=== PATIENT | female | born 1945 | race African-American/Black ===

== ENCOUNTER → 2019-10-28 | Outpatient (CLI) | payer BC, MEDICARE ==
[2019-08-14 08:15] VITALS: BP 138/67
[~2019-10-28] MED LIST: HYDR-3164 PO
--- NOTE | 2019-10-28 13:09 | KCIC ---
MR of the right knee HISTORY: Right medial knee pain and swelling. [place] a pop. TECHNIQUE: Routine multiplanar sequences are obtained. FINDINGS: Degenerative tear at the posterior root of the medial meniscus, with medial subluxation of the meniscus. No evidence of a lateral meniscal tear. Anterior and posterior cruciate ligaments are intact. Medial collateral ligament is intact. Iliotibial band unremarkable. Fibular collateral ligament, biceps femoris tendon and popliteus tendon are intact. The extensor mechanism is intact. Trace joint fluid. Mild disorganized fluid in the posteromedial knee soft tissues, likely a ruptured Swift's cyst. Severe chondral thinning of the weightbearing medial joint compartment. Lateral joint compartment and patellofemoral joint compartment articular cartilage are intact. No acute fracture. No aggressive bone destruction. IMPRESSION: 1. Medial meniscal tear. 2. Medial compartment chondromalacia. 3. Small ruptured Swift's cyst. Electronically signed by: Sarthak Thakur MD (10/28/2019 1:06 PM) [facility]-KCIC2
== END | disposition home or self-care (01) ==
LOC: KCIC MRI 11:35
PROVIDERS: ATTEND Orthopaedic Surgery
DX: S83.241A Other tear of medial meniscus, current injury, right knee, initial encounter (principal); M94.261 Chondromalacia, right knee; M71.21 Synovial cyst of popliteal space [Baker], right knee; X58.XXXA Exposure to other specified factors, initial encounter; Y93.89 Activity, other specified; Y92.89 Other specified places as the place of occurrence of the external cause; Y99.8 Other external cause status
CPT/HCPCS: 73721

== ENCOUNTER 2021-04-15 09:58 | Inpatient (IN) | payer BC ==
[~2021-04-15] VITALS: Ht 160 cm; Wt 80.6 kg
[2021-04-15] MEDS ORDERED: DEXAMETHASONE SOD PHOS 20 MG/5 ML VIAL. IVP ONE (11:00)
[2021-04-15] MEDS ORDERED: ONDANSETRON PF 4 MG/2 ML VIAL. IVP ONE (11:30)
[2021-04-15] MEDS ORDERED: IV NORMAL SALINE 1000ML BAG 1,000 ML IV ONE (11:30)
--- NOTE | 2021-04-15 11:30 | PHYS DOC ---
Past Medical History Past Medical History: Cancer, Hypertension Additional Past Medical Histor: emphysema, palpitations Past Surgical History: Hysterectomy Additional Past Surgical Histo: lung biopsy Smoking Status: Former Smoker Alcohol Use: None Drug Use: None General Adult EDM: Chief Complaint: SHORTNESS OF BREATH HPI: HPI: Patient is a 75 year old female who presents with her daughter came down with Covid and was tested on Sunday and came back positive so she got tested on Sunday and was positive. Patient states on Sunday she been having nausea, salty taste in her mouth, shortness of air, cough, diarrhea and lack of appetite in general. She states that her temperature has been getting up to one hundred and one. She states she did not take any of her medications today. She states that her primary care doctor gave her Tessalon Perles, promethazine codeine cough medication, azithromycin. She states it makes her gag. She states she is unable to eat because she is very nauseated. Review of Systems: Review of Systems: Constitutional: + fever or chills. [] Eyes: Denies change in visual acuity. [] HENT: Denies nasal congestion or sore throat. [] Respiratory: + cough or +shortness of breath. [] Cardiovascular: Denies chest pain or edema. [] GI: Denies abdominal pain, +nausea, denies vomiting, bloody stools or +diarrhea. [] : Denies dysuria. [] Musculoskeletal: Denies back pain or joint pain. + Generalized body ache [] Integument: Denies rash. [] Neurologic: Denies headache, focal weakness or sensory changes. [] Endocrine: Denies polyuria or polydipsia. [] Lymphatic: Denies swollen glands. [] Psychiatric: Denies depression or anxiety. [] Heart Score: C/O Chest Pain: No HEART Score for Chest Pain: HEART Score for Chest Pain Response (Comments) Value History Slighlty/Non-Suspicious 0 ECG Nonspecific Repolarizatio 1 Age > 65 2 Risk Factors 1 or 2 Risk Factors 1 Troponin < Normal Limit 0 Total 4 Risk Factors: Risk Factors: DM, Current or recent (<one month) smoker, HTN, HLP, family history of CAD, obesity. Risk Scores: Score 0 - 3: 2.5% MACE over next 6 weeks - Discharge Home Score 4 - 6: 20.3% MACE over next 6 weeks - Admit for Clinical Observation Score 7 - 10: 72.7% MACE over next 6 weeks - Early Invasive Strategies Current Medications: Current Medications Medications (Trade) Dose Ordered Sig/Jimenez Start Time Stop Time Status Last Admin Dose Admin Dexamethasone Sodium Phosphate (Decadron) 20 mg 1X ONCE 04/15/21 11:00 04/15/21 11:01 DC Allergies: Allergies: Allergies Coded Allergies Type Severity Reaction Last Updated Verified No Known Drug Allergies 02/09/15 No Physical Exam: PE: Constitutional: Well developed, well nourished, no acute distress, non-toxic appearance. [] HENT: Normocephalic, atraumatic, bilateral external ears normal, oropharynx moist, no oral exudates, nose normal. [] Eyes: PERRLA, EOMI, conjunctiva normal, no discharge. [] Neck: Normal range of motion, no tenderness, supple, no stridor. [] Cardiovascular:Heart rate tachycardia regular rhythm, no murmur [] Lungs & Thorax: Bilateral upper breath sounds clear and lower diminished to auscultation [] Abdomen: Bowel sounds normal, soft, no tenderness, no masses, no pulsatile masses. [] Skin: Warm, dry, no erythema, no rash. [] Back: No tenderness, no CVA tenderness. [] Extremities: No tenderness, no cyanosis, no clubbing, ROM intact, no edema. [] Neurologic: Alert and oriented X 3, normal motor function, normal sensory function, no focal deficits noted. [] Psychologic: Affect normal, judgement normal, mood normal. [] EKG: EK and read by Dr. Austin as sinus tachycardia no STEMI Radiology/Procedures: Radiology/Procedures: [] Impression: [facility] [address] [place], [place] [id number] IMAGING REPORT Signed PATIENT: CURT MOHAN ACCOUNT: [id number] : 1945 LOCATION: ER AGE: 75 SEX: F EXAM STATUS: REG ER ORD. PHYSICIAN: FABIANO HORNER APRN REASON: SOA, COVID + PROCEDURE: PORTABLE CHEST 1V EXAM: CHEST ONE VIEW. HISTORY: Shortness of breath. COMPARISON: 02/09/2015. FINDINGS: A frontal view of the chest is obtained. There are interstitial opacities with a basilar predominance. There is a lung suture line in the right apex. Aracelis project over the right hilum. There is no pneumothorax or pleural effusion. The heart is not enlarged. There are atherosclerotic calcifications of the aorta. IMPRESSION: 1. Basilar predominant interstitial infiltrates are consistent with mild pulmonary edema or atypical pneumonia. Electronically signed by: Zhanna Sanford MD (04/15/2021 11:52 AM) [id number] DICTATED and SIGNED BY: AYAH SANFORD MD DATE: 04/15/21 [id number] 0 Course & Med Decision Making: Course & Med Decision Making Pertinent Labs and Imaging studies reviewed. (See chart for details) See HPI. Alert and oriented x4. Ambulatory with steady gait. Speaks in full clear sentences. On her normal 2 L of oxygen that she wears all day every day she is 92%. Lungs are clear in upper lobes and diminished in lower lobes. No accessory muscle use. No respiratory distress. Skin pink warm and dry. She has pneumonia with COVID-19. Not hypoxic at this time. She does have a high white count with a shift. I did start her on antibiotic here in the ER. I spoke to Dr. Aguirre for admission and he said to order Remdesivir. I called pharmacy and they are ordering it. I did not consult Dr. Agrawal at this time because he has stated that he only wants to be consulted for patients that are hypoxic. [] Dragon Disclaimer: Dragsudha Disclaimer: This electronic medical record was generated, in whole or in part, using a voice recognition dictation system. COVID-19 Patient Risks: Age 65 or older: Yes Sign of co-morbidity: Yes Exp to person + for COVID: Yes Exp to PUI: Yes Travel from affected area: No Lower respiratory symptoms: Yes Fever: Yes Other: Yes (salty taste, nausea) PPE Use: Full PPE with N95 mask or PAPR: Yes Departure Departure Impression: Primary Impression: Pneumonia due to COVID-19 virus Disposition: ADMITTED INPATIENT Admitting Physician: Anna Aguirre Condition: STABLE Referrals: ANNA AGUIRRE MD (PCP) FABIANO HORNER COMBAT CONTROL MANAGER Apr 15, 2021 11:30
[2021-04-15 11:44] LABS: BASO % 0 % (0-3); EOS % 0 % (0-3); HEMATOCRIT 39.4 % (36.0-47.0); HEMOGLOBIN 13.1 g/dL (12.0-15.5); LYMPH # 0.8 x10^3/uL (1.0-4.8); LYMPH % 5 % (24-48); MEAN CORPUSCULAR HEMOGLOBIN 28 pg (25-35); MEAN CORPUSCULAR HGB CONC 33 g/dL (31-37); MEAN CORPUSCULAR VOLUME 85 fL (79-100); MONO # 1.2 x10^3/uL (0.0-1.1); MONO % 8 % (0-9); NEUT # 13.4 x10^3/uL (1.8-7.7); NEUT % 87 % (31-73); PLATELET COUNT 199 x10^3/uL (140-400); RED BLOOD COUNT 4.65 x10^6/uL (3.50-5.40); RED CELL DISTRIBUTION WIDTH 17.7 % (11.5-14.5); WHITE BLOOD COUNT 15.5 x10^3/uL (4.0-11.0)
--- NOTE | 2021-04-15 11:54 | RAD ---
EXAM: CHEST ONE VIEW. HISTORY: Shortness of breath. COMPARISON: 02/09/2015. FINDINGS: A frontal view of the chest is obtained. There are interstitial opacities with a basilar predominance. There is a lung suture line in the righ t apex. Aracelis project over the right hilum. There is no pneumothorax or pleural effusion. The heart is not enlarged. There are atherosclerotic calcifications of the aorta. IMPRESSION: 1. Basilar predominant interstitial infiltrates are consistent with mild pulmonary edema or atypical pneumonia. Electronically signed by: Zhanna Sanford MD (04/15/2021 11:52 AM) [id number]
[2021-04-15] MEDS ORDERED: AZITHRMYCN 500MG IVPB FOR OMNI 250 ML IV ONE (12:00)
[2021-04-15] MEDS ORDERED: ACETAMINOPHEN 500 MG TABLET PO ONE (12:00)
[2021-04-15 12:30] LABS: CREATININE 1.4 mg/dL (0.6-1.0); GFR 44.5; POTASSIUM 4.3 mmol/L (3.5-5.1)
[2021-04-15 12:38] LABS: ALBUMIN 3.2 g/dL (3.4-5.0); ALBUMIN/GLOBULIN RATIO 0.5 (1.0-1.7); TOTAL BILIRUBIN 2.2 mg/dL (0.2-1.0); TOTAL PROTEIN 9.1 g/dL (6.4-8.2)
[2021-04-15 12:59] LABS: % ATYL 1 % (0-0); % BANDS 2 % (0-9); % LYMPHS 5 % (24-48)
[2021-04-15 13:00] LABS: % MONOS 6 % (0-10); % SEGS 86 % (35-66); ANISOCYTOSIS SLIGHT; PLT ESTIMATE ADEQUATE (ADEQUATE)
[2021-04-15 14:25] LABS: BASE EXCESS COOX -3 mmol/L (-3-3); HCO3 COOX 21 mmol/L (21-28); METHEMOGLOBIN 0.4 % (0.0-1.9); OXYHEMOGLOBIN 92.5 %; PCO2 COOX 31 mmHg (35-46); PO2 COOX 71 mmHg (65-108); SAT O2 COOX 93 % (92-99)
[2021-04-15] MEDS ORDERED: ACETAMINOPHEN 325 MG TABLET. PO PRN (14:45)
[2021-04-15] MEDS ORDERED: IV NORMAL SALINE 500ML BAG 500 ML IV ONE (15:00)
[2021-04-15] MEDS ORDERED: REMDESIVIR LOAD in IV NORMAL SALINE 250ML TV IV ONE (16:00)
--- NOTE | 2021-04-15 17:45 | EKG ---
[facility] [address] [place] [address] Test Date: 2021-04-15 Test Time: 10:59:46 Pat Name: CURT MOHAN Department: Room: Gender: F Emergency Vehicle Dispatcher: : 1945 Requested By: FABIANO HORNER Order Number: [id number] Reading MD: Measurements Intervals [place] Rate: 103 P: 76 NC: 148 QRS: 35 QRSD: 80 T: 59 QT: 330 QTc: 434 Interpretive Statements SINUS TACHYCARDIA NO SPECIFIC ECG ABNORMALITIES RI6.02 No previous ECG available for comparison
[2021-04-15 19:00] VITALS: BP 129/61
[2021-04-15] MEDS ORDERED: LEVO112T49 PO (21:19)
[2021-04-15] MEDS ORDERED: D-ME473S14 PO (21:19)
[2021-04-15] MEDS ORDERED: FLUT16SP NS (21:19)
[2021-04-15] MEDS ORDERED: HYDR-2763 PO (21:19)
[2021-04-15] MEDS ORDERED: BENZ-8 PO (21:19)
[2021-04-15] MEDS ORDERED: ALBU2.5V8 IH (21:19)
[2021-04-15] MEDS ORDERED: METO-239 PO (21:19)
[2021-04-15] MEDS ORDERED: UMEC1DIS INH (21:19)
[2021-04-15] MEDS ORDERED: ALBU2.5V8 INH (21:19)
[2021-04-15] MEDS ORDERED: AMLO2.5T5 PO (21:19)
[2021-04-15] MEDS ORDERED: ATOR10TA60 PO (21:19)
[2021-04-15] MEDS ORDERED: ALBUTEROL SULFATE 2.5 MG/3 ML NEBU. INH PRN (21:30)
[2021-04-15] MEDS ORDERED: ALBUTEROL SULFATE 8GM INHALER. INH PRN (21:30)
[2021-04-15] MEDS ORDERED: HYDROcodone/APAP 7.5/325MG 1 TAB TABLET PO PRN (21:30)
[2021-04-15] MEDS: ATORVASTATIN CALCIUM 10 MG TABLET. PO SCH (22:21)
[2021-04-15] MEDS: guaiFENesin DM 200MG/20MG 10 ML SYRUP PO PRN (22:31)
[2021-04-15] MEDS ORDERED: ASPI81TA59 PO (22:37)
[2021-04-15 23:06] VITALS: BP 115/62
[2021-04-16 03:11] VITALS: BP 108/60
[2021-04-16] MEDS: LEVOTHYROXINE 112 MCG TABLET PO SCH (05:53)
[2021-04-16] MEDS: guaiFENesin DM 200MG/20MG 10 ML SYRUP PO PRN (05:58)
[2021-04-16 06:32] LABS: ALBUMIN 2.3 g/dL (3.4-5.0); ALBUMIN/GLOBULIN RATIO 0.4 (1.0-1.7); BASO % 0 % (0-3); CALCIUM 9.5 mg/dL (8.5-10.1); CREATININE 1.2 mg/dL (0.6-1.0); EOS % 0 % (0-3); GFR 53.1; HEMATOCRIT 33.3 % (36.0-47.0); HEMOGLOBIN 10.8 g/dL (12.0-15.5); LYMPH # 0.5 x10^3/uL (1.0-4.8); LYMPH % 4 % (24-48); MEAN CORPUSCULAR HEMOGLOBIN 28 pg (25-35); MEAN CORPUSCULAR HGB CONC 33 g/dL (31-37); MEAN CORPUSCULAR VOLUME 86 fL (79-100); MONO # 0.8 x10^3/uL (0.0-1.1); MONO % 6 % (0-9); NEUT # 11.8 x10^3/uL (1.8-7.7); NEUT % 90 % (31-73); PLATELET COUNT 187 x10^3/uL (140-400); POTASSIUM 4.5 mmol/L (3.5-5.1); RED BLOOD COUNT 3.89 x10^6/uL (3.50-5.40); RED CELL DISTRIBUTION WIDTH 17.6 % (11.5-14.5); TOTAL PROTEIN 7.5 g/dL (6.4-8.2); WHITE BLOOD COUNT 13.1 x10^3/uL (4.0-11.0)
[2021-04-16 07:00] VITALS: BP 104/61
--- NOTE | 2021-04-16 09:34 | PDOC ---
Provider Note Date of Service: DATE: 04/16/21 TIME: 09:30 Provider Note [id number] Justifications for Admission Other Justification ANNA AGUIRRE MD Apr 16, 2021 09:34
[2021-04-16] MEDS: FLUTICASONE 50MCG/NASAL SPRAY 16GM BOTTLE. NS SCH (09:38)
[2021-04-16] MEDS: FLUTICASONE/VILANTEROL 100/25 INHALER. INH SCH (09:38)
[2021-04-16] MEDS: ALBUTEROL SULFATE 8GM INHALER. INH PRN (09:39)
[2021-04-16] MEDS: DEXAMETHASONE SOD PHOS 4 MG/ML VIAL IVP SCH (09:40)
[2021-04-16] MEDS: ASPIRIN CHEWABLE 81 MG TABLET. PO SCH (09:41)
[2021-04-16] MEDS: METOPROLOL SUCC 24HR ER 50 MG TAB.ER.24H. PO SCH (09:41)
[2021-04-16] MEDS: ENOXAPARIN 40 MG/0.4 ML SYRINGE. SQ SCH (09:51)
[2021-04-16 11:00] VITALS: BP 110/62
--- NOTE | 2021-04-16 11:22 | HP ---
ADMIT DATE: 04/15/2021 CHIEF COMPLAINT: COVID. HISTORY OF PRESENT ILLNESS: A 75-year-old black female with known oxygen-dependent COPD and a prior history of lung cancer that appears to be in remission, was diagnosed with COVID per positive test about 1 week ago. She was exposed by her daughter who is ill 3 or 4 days prior to that and has had symptoms for a total of about 10 days. She received COVID vaccine 2-3 months ago by her history. She is having some increasing shortness of breath, cough or weakness in the last few days and admitted through the ER. She has had scant sputum production, generalized weakness, loss of taste and no other specific symptoms. PAST MEDICAL HISTORY: MEDICATIONS: Multiple meds listed per the chart. ALLERGIES: NALBUPHINE. She is on oxygen at home at 2 liters continuously and she is along the doctors at [facility]. Her cancer of the lung appears to be in remission to her knowledge. Other vaccines as far as she knows are up to date. SOCIAL HISTORY: Nonsmoker for many years. She is . She is retired, nondrinker. FAMILY HISTORY: Unremarkable. REVIEW OF SYSTEMS: No other specific complaints. OBJECTIVE: ENT: All within normal limits. NECK: No masses, nodes or bruits. LUNGS: Decreased breath sounds, scattered rhonchi. No wheezing or tachypnea at rest. CARDIOVASCULAR: Regular rate. No tachycardia or murmur. ABDOMEN: Benign, soft, nontender. No masses. EXTREMITIES: Good pedal and radial pulses. No clubbing, no edema. NEUROLOGIC: Physiologic and nonfocal. Gait was not tested. Mental status is intact. GENITOURINARY AND RECTAL: Deferred. LABORATORY DATA: Generally unremarkable. Bilirubin on admission was 2.2 and now this morning was 1.0. Blood gases showed no respiratory acidosis. ASSESSMENT: Interstitial pneumonia secondary to COVID-19. She has underlying oxygen-dependent chronic obstructive pulmonary disease and previous history of lung cancer and contagious illnesses, but her recent vaccination may help modify her illness. PLAN: IV Decadron and remdesivir and subQ Lovenox prophylaxis. Encourage movement about the room to prevent DVT and weakness. Good fluid hydration. Pulmonary consultation and will not be using IL-6 inhibitor unless her symptoms notably worsen per current protocols. YEN/[facility] [place] DR: YEN/sharan TID: [id number]
[2021-04-16 15:00] VITALS: BP 115/67
[2021-04-16] MEDS: REMDESIVIR 100mg in NORMAL SALINE 250ML X 4 DAYS IV SCH (15:53)
[2021-04-16] MEDS: HYDROcodone/APAP 5/325MG 1 TAB TABLET PO PRN (16:04)
[2021-04-16 19:00] VITALS: BP 106/60
[2021-04-16] MEDS: ATORVASTATIN CALCIUM 10 MG TABLET. PO SCH (21:07)
[2021-04-16 23:04] VITALS: BP 107/59
[2021-04-17 03:21] VITALS: BP 102/61
[2021-04-17] MEDS: guaiFENesin DM 200MG/20MG 10 ML SYRUP PO PRN ×2 (05:07→18:14)
[2021-04-17] MEDS: HYDROcodone/APAP 5/325MG 1 TAB TABLET PO PRN ×2 (05:07→21:11)
[2021-04-17] MEDS: LEVOTHYROXINE 112 MCG TABLET PO SCH (05:47)
[2021-04-17 06:59] VITALS: BP 109/59
--- NOTE | 2021-04-17 09:57 | PDOC ---
Provider Note Date of Service: DATE: 04/17/21 TIME: 09:55 Provider Note bp low so will hold amlo- no temp, O2 status same, 2 L- will continue dexa/remdesivir, pulm consult pending, ? use of monoclonal AB here Justifications for Admission Other Justification ANNA AGUIRRE MD Apr 17, 2021 09:56
[2021-04-17 11:00] VITALS: BP 101/55
[2021-04-17] MEDS: FLUTICASONE/VILANTEROL 100/25 INHALER. INH SCH (11:44)
[2021-04-17] MEDS: ALBUTEROL SULFATE 8GM INHALER. INH PRN (11:44)
[2021-04-17] MEDS: ENOXAPARIN 40 MG/0.4 ML SYRINGE. SQ SCH (11:44)
[2021-04-17] MEDS: FLUTICASONE 50MCG/NASAL SPRAY 16GM BOTTLE. NS SCH (11:44)
[2021-04-17] MEDS: METOPROLOL SUCC 24HR ER 50 MG TAB.ER.24H. PO SCH (11:45)
[2021-04-17] MEDS: ASPIRIN CHEWABLE 81 MG TABLET. PO SCH (11:45)
[2021-04-17] MEDS: DEXAMETHASONE SOD PHOS 4 MG/ML VIAL IVP SCH (11:46)
[2021-04-17] MEDS: FAMOTIDINE 20 MG TABLET. PO SCH (11:50)
[2021-04-17 15:00] VITALS: BP 138/62
[2021-04-17] MEDS: REMDESIVIR 100mg in NORMAL SALINE 250ML X 4 DAYS IV SCH (15:21)
[2021-04-17 19:00] VITALS: BP 129/77
[2021-04-17] MEDS: BENZONATATE 100 MG CAPSULE. PO PRN (21:07)
[2021-04-17] MEDS: ATORVASTATIN CALCIUM 10 MG TABLET. PO SCH (21:07)
[2021-04-17 23:00] VITALS: BP 110/70
[2021-04-18 03:00] VITALS: BP 116/67
[2021-04-18] MEDS: LEVOTHYROXINE 112 MCG TABLET PO SCH (06:04)
[2021-04-18 07:00] VITALS: BP 129/70
--- NOTE | 2021-04-18 08:22 | PDOC ---
Provider Note Date of Service: DATE: 04/18/21 TIME: 08:21 Provider Note vss, O2 same- no temp- no dyspnea, emergency services professional cough, sputum cult pending- day 4 remdesivir, cont rest same, ? monoclonal AB used here Justifications for Admission Other Justification ANNA AGUIRRE MD Apr 18, 2021 08:22
--- NOTE | 2021-04-18 09:07 | CONS ---
DATE OF CONSULTATION: 04/18/2021 ATTENDING PHYSICIAN: Dr. Jaylon Wilson. REASON FOR CONSULTATION: Respiratory failure, COVID-19 pneumonia. HISTORY OF PRESENT ILLNESS: The patient is a 75-year-old female who has oxygen dependent COPD and prior history of lung cancer, which appears to be in remission. She was diagnosed with COVID-19 a week ago. The patient did receive COVID vaccine a few months ago. She started to have some shortness of breath and a cough. She was brought into the Emergency Room. Her chest x-ray was reviewed and it shows prominent interstitial infiltrates consistent with viral pneumonia. She is currently requiring oxygen at 4 liters. Saturations are 94%. I have been asked to see her for further evaluation. PAST MEDICAL HISTORY: Significant for history of lung cancer, appears to be in remission. Details not available at present. Recent COVID positive. No significant tobacco history. PAST SURGICAL HISTORY: No recent surgeries. FAMILY HISTORY: Unremarkable. SOCIAL HISTORY: Smoked for only 5-10 years before quitting some 30 years ago. REVIEW OF SYSTEMS: A 12-point system obtained. Pertinent positives discussed in my history of present illness, otherwise noncontributory. All systems that were negative were reviewed as well. PHYSICAL EXAMINATION: VITAL SIGNS: Vital signs were reviewed. Blood pressure is stable, pulse ox 94% on 4 liters. She had a T-max of 99.3. Visual exam done, no paradoxical breathing. No skin rash. EXTREMITIES: No leg edema. LABORATORY DATA: Labs were reviewed. White cell count 13.1, hemoglobin 10.8, platelets are 187. ABGs reviewed. PO2 of 71 on 2 liters. IMPRESSION: 1. Acute on chronic hypoxic respiratory failure secondary to COVID-19 viral pneumonia. 2. Underlying chronic obstructive pulmonary disease with home oxygen dependence. 3. History of lung cancer, status post treatment, now in remission. I will obtain old records for the details. RECOMMENDATIONS: 1. Continue present oxygen, keep saturations 92 and above. 2. Continue with remdesivir. 3. Dexamethasone per protocol. 4. Empiric antibiotic with Levaquin. 5. Bronchodilators as ordered. 6. We will follow along with you. Overall, respiratory status is stable. We will be available for any further recommendations. We will follow as needed. [facility] DR: Chela TID: [id number]
--- NOTE | 2021-04-18 10:46 | NUR ---
SW following. Discussed with RN, pt from home with family, 4L (uses 2L at home), cardiac diet, COVID-19 positive. Pt uses a CPAP at night. PT/OT ordered. RN advised no SW needs at this time. SW will continue to follow.
[2021-04-18 11:00] VITALS: BP 130/82
[2021-04-18] MEDS: ENOXAPARIN 40 MG/0.4 ML SYRINGE. SQ SCH (12:41)
[2021-04-18] MEDS: METOPROLOL SUCC 24HR ER 50 MG TAB.ER.24H. PO SCH (12:42)
[2021-04-18] MEDS: ASPIRIN CHEWABLE 81 MG TABLET. PO SCH (12:43)
[2021-04-18] MEDS: FAMOTIDINE 20 MG TABLET. PO SCH (12:43)
[2021-04-18] MEDS: FLUTICASONE/VILANTEROL 100/25 INHALER. INH SCH (12:44)
[2021-04-18] MEDS: FLUTICASONE 50MCG/NASAL SPRAY 16GM BOTTLE. NS SCH (12:44)
[2021-04-18] MEDS: ALBUTEROL SULFATE 8GM INHALER. INH PRN (12:44)
[2021-04-18] MEDS: DEXAMETHASONE SOD PHOS 4 MG/ML VIAL IVP SCH (12:44)
[2021-04-18] MEDS: IPRATROPIUM/ALBUTEROL 20/100mcg/INH INHALER. INH SCH ×4 (12:45→21:59)
[2021-04-18] MEDS: guaiFENesin DM 200MG/20MG 10 ML SYRUP PO PRN ×2 (13:54→21:59)
[2021-04-18] MEDS: HYDROcodone/APAP 5/325MG 1 TAB TABLET PO PRN ×2 (14:00→21:59)
[2021-04-18 15:00] VITALS: BP 119/69
[2021-04-18] MEDS: REMDESIVIR 100mg in NORMAL SALINE 250ML X 4 DAYS IV SCH (16:28)
[2021-04-18 19:00] VITALS: BP 105/70
[2021-04-18] MEDS: ATORVASTATIN CALCIUM 10 MG TABLET. PO SCH (21:59)
[2021-04-18] MEDS: BENZONATATE 100 MG CAPSULE. PO PRN (21:59)
[2021-04-18 23:00] VITALS: BP 111/68
[2021-04-19 03:00] VITALS: BP 123/72
[2021-04-19] MEDS: LEVOTHYROXINE 112 MCG TABLET PO SCH (06:11)
[2021-04-19 07:00] VITALS: BP 126/75
--- NOTE | 2021-04-19 08:09 | PDOC ---
Provider Note Date of Service: DATE: 04/19/21 TIME: 08:08 Provider Note vss, no temp, seems same, loose cough- day 5 remdes, now po decadron, rest same, will need rehab after Justifications for Admission Other Justification ANNA AGUIRRE MD Apr 19, 2021 08:09
--- NOTE | 2021-04-19 10:02 | PDOC ---
PULMONARY PROGRESS NOTES DATE: 04/19/21 TIME: 10:00 Subjective Remains on nasal cannula. Denies any increased shortness of breath. Vitals Vital Signs Date Time Temp Pulse Resp B/P (MAP) Pulse Ox O2 Delivery O2 Flow Rate FiO2 04/19/21 07:00 98.2 72 18 126/75 (92) 91 Nasal Cannula 5.0 98.2 Comments Visual exam done due to COVID-19 pneumonia. No paradoxical breathing no skin rash no leg edema. Medications Active Scripts Medications Dose Route/Sig Max Daily Dose Days Date Category Dose Instructions Children's Aspirin (Aspirin) 81 Mg Tab.chew 1 Tab PO DAILY 30 04/15/21 Reported Atorvastatin Calcium 10 Mg Tablet 1 Tab PO DAILY 04/15/21 Reported Proair Hfa Inhaler (Albuterol Sulfate) 8.5 Gm Hfa.aer.ad 2 Puff IH PRN Q4-6HRS PRN 21 04/15/21 Reported Anoro Ellipta 62.5-25 Mcg Inh (Umeclidinium Brm/Vilanterol Tr) 1 Each Disk.w.dev 1 Puff INH DAILY 04/15/21 Reported Hydrocodone-Acetamin 7.5-325 (Hydrocodone/Acetaminophen) 1 Each Tablet 1 Tab PO PRN TID PRN 04/15/21 Reported Promethazine-Dm Syrup (Promethazine/Dextromethorphan) 473 Ml Syrup 5 Ml PO PRN Q6HRS PRN 04/15/21 Reported Benzonatate 100 Mg Capsule 1 Cap PO TID PRN 04/15/21 Reported Metoprolol Succinate ( Xl ) (Metoprolol Succinate) 25 Mg Tab.er.24h 50 Mg PO DAILY 04/15/21 Reported Fluticasone Propionate Nasal [place]bph[place] (Fluticasone Propionate) 16 Gm Jbphh.susp 1 Jbphh NS DAILY 04/15/21 Reported Amlodipine Besylate 2.5 Mg Tablet 1 Tab PO DAILY 04/15/21 Reported Levothyroxine Sodium 112 Mcg Tablet 1 Tab PO DAILY 04/15/21 Reported [place] 5-325 Tablet (Acetaminophen/Hydrocodone Bitart) 1 Each Tablet 1-2 Each PO PRN Q6HRS PRN 08/14/19 Rx as needed for pain Impression . 1. Acute on chronic hypoxic respiratory failure secondary to COVID-19 viral pneumonia. 2. Underlying chronic obstructive pulmonary disease with home oxygen dependence. 3. History of lung cancer, diagnosed in 2001. Patient states she has surgery at that time followed by chemo and radiation. Last PET scan from 2016 without any hypermetabolic activity. Plan . 1. Continue present oxygen, keep saturations 92 and above. 2. Continue with remdesivir. 3. Dexamethasone per protocol. 4. Empiric antibiotic with Levaquin. 5. Bronchodilators as ordered. 6. We will follow along with you. Overall, respiratory status is stable. We will be available for any further recommendations. We will follow as needed. DAHIANA DECKER MD Apr 19, 2021 10:02
[2021-04-19] MEDS: ASPIRIN CHEWABLE 81 MG TABLET. PO SCH (10:16)
[2021-04-19] MEDS: DEXAMETHASONE 4 MG TABLET PO SCH (10:16)
[2021-04-19] MEDS: METOPROLOL SUCC 24HR ER 50 MG TAB.ER.24H. PO SCH (10:17)
[2021-04-19] MEDS: FAMOTIDINE 20 MG TABLET. PO SCH (10:18)
[2021-04-19] MEDS: FLUTICASONE/VILANTEROL 100/25 INHALER. INH SCH (10:18)
[2021-04-19] MEDS: ALBUTEROL SULFATE 8GM INHALER. INH PRN (10:18)
[2021-04-19] MEDS: FLUTICASONE 50MCG/NASAL SPRAY 16GM BOTTLE. NS SCH (10:18)
[2021-04-19] MEDS: IPRATROPIUM/ALBUTEROL 20/100mcg/INH INHALER. INH SCH ×4 (10:19→20:00)
[2021-04-19] MEDS: ENOXAPARIN 40 MG/0.4 ML SYRINGE. SQ SCH (10:20)
[2021-04-19 11:00] VITALS: BP 124/59
[2021-04-19 15:00] VITALS: BP 127/65
[2021-04-19] MEDS: REMDESIVIR 100mg in NORMAL SALINE 250ML X 4 DAYS IV SCH (16:45)
[2021-04-19 19:00] VITALS: BP 123/87
[2021-04-19] MEDS: BENZONATATE 100 MG CAPSULE. PO PRN (22:09)
[2021-04-19] MEDS: ATORVASTATIN CALCIUM 10 MG TABLET. PO SCH (22:09)
[2021-04-19] MEDS: HYDROcodone/APAP 5/325MG 1 TAB TABLET PO PRN (22:09)
[2021-04-19] MEDS: guaiFENesin DM 200MG/20MG 10 ML SYRUP PO PRN (22:10)
[2021-04-19 23:00] VITALS: BP 111/66
[2021-04-20 03:00] VITALS: BP_SYST 138
[2021-04-20] MEDS: LEVOTHYROXINE 112 MCG TABLET PO SCH (06:10)
[2021-04-20 07:00] VITALS: BP 125/68
--- NOTE | 2021-04-20 08:17 | PDOC ---
Provider Note Date of Service: DATE: 04/20/21 TIME: 08:09 Provider Note vss, no temp, bp same- resp status seems same-, cont same- will likely need rehab re weakness Justifications for Admission Other Justification ANNA AGUIRRE MD Apr 20, 2021 08:17
[2021-04-20] MEDS: FLUTICASONE/VILANTEROL 100/25 INHALER. INH SCH (09:48)
[2021-04-20] MEDS: ASPIRIN CHEWABLE 81 MG TABLET. PO SCH (09:49)
[2021-04-20] MEDS: DEXAMETHASONE 4 MG TABLET PO SCH (09:49)
[2021-04-20] MEDS: ALBUTEROL SULFATE 8GM INHALER. INH PRN (09:49)
[2021-04-20] MEDS: FLUTICASONE 50MCG/NASAL SPRAY 16GM BOTTLE. NS SCH (09:49)
[2021-04-20] MEDS: ENOXAPARIN 40 MG/0.4 ML SYRINGE. SQ SCH (09:49)
[2021-04-20] MEDS: IPRATROPIUM/ALBUTEROL 20/100mcg/INH INHALER. INH SCH ×4 (09:50→20:16)
[2021-04-20] MEDS: METOPROLOL SUCC 24HR ER 50 MG TAB.ER.24H. PO SCH (09:50)
[2021-04-20] MEDS: FAMOTIDINE 20 MG TABLET. PO SCH (09:50)
[2021-04-20] MEDS: guaiFENesin DM 200MG/20MG 10 ML SYRUP PO PRN ×2 (10:07→20:16)
[2021-04-20] MEDS: BENZONATATE 100 MG CAPSULE. PO PRN (10:07)
[2021-04-20 11:00] VITALS: BP 132/65
--- NOTE | 2021-04-20 14:02 | NUR ---
SW following. Discussed with RN, pt from home, 7L (does not use oxygen at home, has a CPAP at night). COVID-19 positive. Pt desats into the 70s just getting to edge of bed. Therapy recommending SNF, however pt not ready for SNF discharge at this time. SW will continue to follow.
[2021-04-20 15:00] VITALS: BP 125/70
[2021-04-20 19:00] VITALS: BP 103/68
[2021-04-20] MEDS: ATORVASTATIN CALCIUM 10 MG TABLET. PO SCH (20:16)
[2021-04-20] MEDS: HYDROcodone/APAP 5/325MG 1 TAB TABLET PO PRN (20:16)
[2021-04-20 23:00] VITALS: BP 127/68
[2021-04-21 03:00] VITALS: BP 114/76
[2021-04-21] MEDS: LEVOTHYROXINE 112 MCG TABLET PO SCH (06:44)
[2021-04-21 07:00] VITALS: BP 123/69
--- NOTE | 2021-04-21 08:09 | PDOC ---
Provider Note Date of Service: DATE: 04/21/21 TIME: 08:08 Provider Note no temp, says she feels a little better, cough same- O2 need some higher- will repeat cxr to assess for any change, rest same, still Katelynn ordonez Justifications for Admission Other Justification ANNA AGUIRRE MD Apr 21, 2021 08:09
[2021-04-21] MEDS: FLUTICASONE 50MCG/NASAL SPRAY 16GM BOTTLE. NS SCH (09:00)
[2021-04-21] MEDS: ASPIRIN CHEWABLE 81 MG TABLET. PO SCH (10:01)
[2021-04-21] MEDS: ENOXAPARIN 40 MG/0.4 ML SYRINGE. SQ SCH (10:01)
[2021-04-21] MEDS: ALBUTEROL SULFATE 8GM INHALER. INH PRN (10:01)
[2021-04-21] MEDS: FLUTICASONE/VILANTEROL 100/25 INHALER. INH SCH (10:01)
[2021-04-21] MEDS: METOPROLOL SUCC 24HR ER 50 MG TAB.ER.24H. PO SCH (10:02)
[2021-04-21] MEDS: FAMOTIDINE 20 MG TABLET. PO SCH (10:02)
[2021-04-21] MEDS: DEXAMETHASONE 4 MG TABLET PO SCH (10:02)
[2021-04-21] MEDS: IPRATROPIUM/ALBUTEROL 20/100mcg/INH INHALER. INH SCH ×4 (10:04→20:00)
[2021-04-21] MEDS: HYDROcodone/APAP 5/325MG 1 TAB TABLET PO PRN (10:15)
--- NOTE | 2021-04-21 10:19 | PDOC ---
PULMONARY PROGRESS NOTES DATE: 04/21/21 TIME: 10:17 Subjective Remains on nasal cannula. Denies any increased shortness of breath. Vitals Vital Signs Date Time Temp Pulse Resp B/P (MAP) Pulse Ox O2 Delivery O2 Flow Rate FiO2 04/21/21 10:15 97 Nasal Cannula 7.0 04/21/21 10:02 53 123/69 04/21/21 07:00 97.5 18 97.5 Comments Visual exam done due to COVID-19 pneumonia. No paradoxical breathing no skin rash no leg edema. Medications Active Scripts Medications Dose Route/Sig Max Daily Dose Days Date Category Dose Instructions Children's Aspirin (Aspirin) 81 Mg Tab.chew 1 Tab PO DAILY 30 04/15/21 Reported Atorvastatin Calcium 10 Mg Tablet 1 Tab PO DAILY 04/15/21 Reported Proair Hfa Inhaler (Albuterol Sulfate) 8.5 Gm Hfa.aer.ad 2 Puff IH PRN Q4-6HRS PRN 21 04/15/21 Reported Anoro Ellipta 62.5-25 Mcg Inh (Umeclidinium Brm/Vilanterol Tr) 1 Each Disk.w.dev 1 Puff INH DAILY 04/15/21 Reported Hydrocodone-Acetamin 7.5-325 (Hydrocodone/Acetaminophen) 1 Each Tablet 1 Tab PO PRN TID PRN 04/15/21 Reported Promethazine-Dm Syrup (Promethazine/Dextromethorphan) 473 Ml Syrup 5 Ml PO PRN Q6HRS PRN 04/15/21 Reported Benzonatate 100 Mg Capsule 1 Cap PO TID PRN 04/15/21 Reported Metoprolol Succinate ( Xl ) (Metoprolol Succinate) 25 Mg Tab.er.24h 50 Mg PO DAILY 04/15/21 Reported Fluticasone Propionate Nasal [place] (Fluticasone Propionate) 16 Gm [place].susp 1 [place] NS DAILY 04/15/21 Reported Amlodipine Besylate 2.5 Mg Tablet 1 Tab PO DAILY 04/15/21 Reported Levothyroxine Sodium 112 Mcg Tablet 1 Tab PO DAILY 04/15/21 Reported [place] 5-325 Tablet (Acetaminophen/Hydrocodone Bitart) 1 Each Tablet 1-2 Each PO PRN Q6HRS PRN 08/14/19 Rx as needed for pain Impression . 1. Acute on chronic hypoxic respiratory failure secondary to COVID-19 viral pneumonia. 2. Underlying chronic obstructive pulmonary disease with home oxygen dependence. 3. History of lung cancer, diagnosed in 2001. Patient states she has surgery at that time followed by chemo and radiation. Last PET scan from 2016 without any hypermetabolic activity. Plan . 1. Continue present oxygen, keep saturations 92 and above. Currently on 6 L. 2. Continue with remdesivir. 3. Dexamethasone per protocol. 4. Empiric antibiotic with Levaquin. 5. Bronchodilators as ordered. 6. We will follow along with you. Overall, respiratory status is stable. Please inform us if oxygen requirement worsens. DAHIANA DECKER MD Apr 21, 2021 10:19
[2021-04-21 11:00] VITALS: BP 115/67
--- NOTE | 2021-04-21 11:00 | RAD ---
EXAM: AP View of the chest DATE: 04/21/2021 8:26 AM INDICATION: Reason: covid / Spl. Instructions: / History: COMPARISON: 04/15/2021 02/09/2015 FINDINGS/ IMPRESSION: Heart is mildly enlarged. Aorta is tortuous. Scarring calcifications. Bilateral perihilar and lung ba se airspace opacities likely consolidative process such as pneumonia, progressed/new compared 04/15/20 21. Small pleural effusions. No pneumothorax. Electronically signed by: Ulises Ortiz MD (04/21/2021 10:57 AM) [id number]
[2021-04-21 15:00] VITALS: BP 129/80
[2021-04-21 19:00] VITALS: BP 121/70
[2021-04-21] MEDS: ATORVASTATIN CALCIUM 10 MG TABLET. PO SCH (21:00)
[2021-04-21 23:00] VITALS: BP 105/60
[2021-04-22 03:00] VITALS: BP 122/68
[2021-04-22] MEDS: LEVOTHYROXINE 112 MCG TABLET PO SCH (06:33)
[2021-04-22 07:00] VITALS: BP 109/67
--- NOTE | 2021-04-22 08:29 | PDOC ---
Provider Note Date of Service: DATE: 04/22/21 TIME: 08:27 Provider Note status same, O2 need same, feels a little better but still lots of ZHANG- cxr same- continue same, pulm rehab will be needed Justifications for Admission Other Justification ANNA AGUIRRE MD Apr 22, 2021 08:29
[2021-04-22] MEDS: FLUTICASONE/VILANTEROL 100/25 INHALER. INH SCH (09:12)
[2021-04-22] MEDS: FAMOTIDINE 20 MG TABLET. PO SCH (09:13)
[2021-04-22] MEDS: DEXAMETHASONE 4 MG TABLET PO SCH (09:13)
[2021-04-22] MEDS: METOPROLOL SUCC 24HR ER 50 MG TAB.ER.24H. PO SCH (09:13)
[2021-04-22] MEDS: ASPIRIN CHEWABLE 81 MG TABLET. PO SCH (09:13)
[2021-04-22] MEDS: ENOXAPARIN 40 MG/0.4 ML SYRINGE. SQ SCH (09:14)
[2021-04-22] MEDS: FLUTICASONE 50MCG/NASAL SPRAY 16GM BOTTLE. NS SCH (09:14)
--- NOTE | 2021-04-22 10:10 | PDOC ---
PULMONARY PROGRESS NOTES DATE: 04/22/21 TIME: 10:09 Subjective Remains on nasal cannula. Denies any increased shortness of breath. Vitals Vital Signs Date Time Temp Pulse Resp B/P (MAP) Pulse Ox O2 Delivery O2 Flow Rate FiO2 04/22/21 09:13 48 109/67 04/22/21 07:00 97.0 16 99 97.0 04/21/21 20:15 Nasal Cannula 7.0 Comments Visual exam done due to COVID-19 pneumonia. No paradoxical breathing no skin rash no leg edema. Medications Active Scripts Medications Dose Route/Sig Max Daily Dose Days Date Category Dose Instructions Children's Aspirin (Aspirin) 81 Mg Tab.chew 1 Tab PO DAILY 30 04/15/21 Reported Atorvastatin Calcium 10 Mg Tablet 1 Tab PO DAILY 04/15/21 Reported Proair Hfa Inhaler (Albuterol Sulfate) 8.5 Gm Hfa.aer.ad 2 Puff IH PRN Q4-6HRS PRN 21 04/15/21 Reported Anoro Ellipta 62.5-25 Mcg Inh (Umeclidinium Brm/Vilanterol Tr) 1 Each Disk.w.dev 1 Puff INH DAILY 04/15/21 Reported Hydrocodone-Acetamin 7.5-325 (Hydrocodone/Acetaminophen) 1 Each Tablet 1 Tab PO PRN TID PRN 04/15/21 Reported Promethazine-Dm Syrup (Promethazine/Dextromethorphan) 473 Ml Syrup 5 Ml PO PRN Q6HRS PRN 04/15/21 Reported Benzonatate 100 Mg Capsule 1 Cap PO TID PRN 04/15/21 Reported Metoprolol Succinate ( Xl ) (Metoprolol Succinate) 25 Mg Tab.er.24h 50 Mg PO DAILY 04/15/21 Reported Fluticasone Propionate Nasal [place] (Fluticasone Propionate) 16 Gm [place].susp 1 [place] NS DAILY 04/15/21 Reported Amlodipine Besylate 2.5 Mg Tablet 1 Tab PO DAILY 04/15/21 Reported Levothyroxine Sodium 112 Mcg Tablet 1 Tab PO DAILY 04/15/21 Reported [place] 5-325 Tablet (Acetaminophen/Hydrocodone Bitart) 1 Each Tablet 1-2 Each PO PRN Q6HRS PRN 08/14/19 Rx as needed for pain Impression . 1. Acute on chronic hypoxic respiratory failure secondary to COVID-19 viral pneumonia. 2. Underlying chronic obstructive pulmonary disease with home oxygen dependence. 3. History of lung cancer, diagnosed in 2001. Patient states she has surgery at that time followed by chemo and radiation. Last PET scan from 2016 without any hypermetabolic activity. Plan . 1. Continue present oxygen, keep saturations 92 and above. Currently on 6 L. 2. Continue with remdesivir. 3. Dexamethasone per protocol. 4. Empiric antibiotic with Levaquin. 5. Bronchodilators as ordered. 6. We will follow along with you. Overall, respiratory status is stable. DAHIANA DECKER MD Apr 22, 2021 10:10
[2021-04-22] MEDS: IPRATROPIUM/ALBUTEROL 20/100mcg/INH INHALER. INH SCH ×4 (10:31→21:43)
[2021-04-22 11:00] VITALS: BP 148/66
--- NOTE | 2021-04-22 11:35 | NUR ---
SW following. Discussed with RN, pt on 7L, still dropping to the 70s when moving around. Pt not ready for discharge. COVID-19 positive. SW will continue to follow.
[2021-04-22 15:00] VITALS: BP 110/65
[2021-04-22 19:00] VITALS: BP 110/66
[2021-04-22] MEDS: ATORVASTATIN CALCIUM 10 MG TABLET. PO SCH (21:42)
[2021-04-22] MEDS: LACTOBACILLUS RHAMNOSUS GG 1 CAPSULE. PO SCH (21:43)
[2021-04-22] MEDS: guaiFENesin DM 200MG/20MG 10 ML SYRUP PO PRN (21:48)
[2021-04-22 23:00] VITALS: BP 124/67
[2021-04-23 03:12] VITALS: BP 123/81
[2021-04-23] MEDS: LEVOTHYROXINE 112 MCG TABLET PO SCH (06:30)
[2021-04-23 07:00] VITALS: BP 132/66
--- NOTE | 2021-04-23 07:46 | PDOC ---
PULMONARY PROGRESS NOTES DATE: 04/23/21 TIME: 07:45 Subjective Remains on nasal cannula 6-7 lpm. sob better is weak Vitals Vital Signs Date Time Temp Pulse Resp B/P (MAP) Pulse Ox O2 Delivery O2 Flow Rate FiO2 04/23/21 03:12 97.7 56 18 123/81 (95) 96 BiPAP/CPAP 97.7 04/22/21 20:00 7.0 Comments Visual exam done due to COVID-19 pneumonia. nc at rrr No accessory muscle use no skin rash no leg edema. Medications Active Scripts Medications Dose Route/Sig Max Daily Dose Days Date Category Dose Instructions Children's Aspirin (Aspirin) 81 Mg Tab.chew 1 Tab PO DAILY 30 04/15/21 Reported Atorvastatin Calcium 10 Mg Tablet 1 Tab PO DAILY 04/15/21 Reported Proair Hfa Inhaler (Albuterol Sulfate) 8.5 Gm Hfa.aer.ad 2 Puff IH PRN Q4-6HRS PRN 21 04/15/21 Reported Anoro Ellipta 62.5-25 Mcg Inh (Umeclidinium Brm/Vilanterol Tr) 1 Each Disk.w.dev 1 Puff INH DAILY 04/15/21 Reported Hydrocodone-Acetamin 7.5-325 (Hydrocodone/Acetaminophen) 1 Each Tablet 1 Tab PO PRN TID PRN 04/15/21 Reported Promethazine-Dm Syrup (Promethazine/Dextromethorphan) 473 Ml Syrup 5 Ml PO PRN Q6HRS PRN 04/15/21 Reported Benzonatate 100 Mg Capsule 1 Cap PO TID PRN 04/15/21 Reported Metoprolol Succinate ( Xl ) (Metoprolol Succinate) 25 Mg Tab.er.24h 50 Mg PO DAILY 04/15/21 Reported Fluticasone Propionate Nasal [place] (Fluticasone Propionate) 16 Gm [place].susp 1 [place] NS DAILY 04/15/21 Reported Amlodipine Besylate 2.5 Mg Tablet 1 Tab PO DAILY 04/15/21 Reported Levothyroxine Sodium 112 Mcg Tablet 1 Tab PO DAILY 04/15/21 Reported [place] 5-325 Tablet (Acetaminophen/Hydrocodone Bitart) 1 Each Tablet 1-2 Each PO PRN Q6HRS PRN 08/14/19 Rx as needed for pain Impression . 1. Acute on chronic hypoxic respiratory failure secondary to COVID-19 viral pneumonia. 2. Underlying chronic obstructive pulmonary disease with home oxygen dependence. 3. History of lung cancer, diagnosed in 2001. Patient states she has surgery at that time followed by chemo and radiation. Last PET scan from 2016 without any hypermetabolic activity. Plan . 1. Continue oxygen, keep saturations 90 and above. start IS 2. Continue with remdesivir. 3. Dexamethasone per protocol. 4. Empiric antibiotic with Levaquin. 5. Bronchodilators 6. We will follow along with you. Overall, respiratory status is stable. WHITNEY FRANKLIN MD Apr 23, 2021 07:46
[2021-04-23] MEDS: IPRATROPIUM/ALBUTEROL 20/100mcg/INH INHALER. INH SCH ×4 (09:17→21:08)
[2021-04-23] MEDS: ALBUTEROL SULFATE 8GM INHALER. INH PRN (09:17)
[2021-04-23] MEDS: FLUTICASONE/VILANTEROL 100/25 INHALER. INH SCH (09:17)
[2021-04-23] MEDS: FLUTICASONE 50MCG/NASAL SPRAY 16GM BOTTLE. NS SCH (09:17)
[2021-04-23] MEDS: LACTOBACILLUS RHAMNOSUS GG 1 CAPSULE. PO SCH ×2 (09:17→21:08)
[2021-04-23] MEDS: ASPIRIN CHEWABLE 81 MG TABLET. PO SCH (09:18)
[2021-04-23] MEDS: METOPROLOL SUCC 24HR ER 50 MG TAB.ER.24H. PO SCH (09:18)
[2021-04-23] MEDS: DEXAMETHASONE 4 MG TABLET PO SCH (09:19)
[2021-04-23] MEDS: FAMOTIDINE 20 MG TABLET. PO SCH (09:19)
[2021-04-23] MEDS: ENOXAPARIN 40 MG/0.4 ML SYRINGE. SQ SCH (09:20)
--- NOTE | 2021-04-23 10:19 | HP ---
ADMIT DATE: 04/23/2021 LOCATION: She is in room 512. SUBJECTIVE: This 75-year-old female, patient of Dr. Jaylon Wilson, remains hospitalized with COVID-19 pneumonia and acute hypoxic respiratory failure. She is stable. Still getting able to get up by herself to the bedside commode. Still short of breath with exertion. Nursing has no concerns. OBJECTIVE: VITAL SIGNS: Stable. She is afebrile. Exam is stable. LABORATORY DATA: No new laboratories available. Chest x-ray done a couple of days ago shows some worsening of her bilateral infiltrates compared to admission on 04/15. IMPRESSION: 1. COVID-19 pneumonia with acute hypoxic respiratory failure, currently needing approximately 7 liters of oxygen. She was on home oxygen prior to admission at 2 liters. 2. History of carcinoma of the lung. 3. Chronic obstructive pulmonary disease. PLAN: Continue supportive care. Help of consultants appreciated. MARYCARMEN LYONS: Angela TID: [phone]
[2021-04-23 11:00] VITALS: BP 139/72
[2021-04-23 15:00] VITALS: BP 119/67
[2021-04-23] MEDS: HYDROcodone/APAP 5/325MG 1 TAB TABLET PO PRN ×2 (15:04→21:08)
[2021-04-23] MEDS: guaiFENesin DM 200MG/20MG 10 ML SYRUP PO PRN ×2 (15:04→21:08)
[2021-04-23] MEDS: BENZONATATE 100 MG CAPSULE. PO PRN ×2 (15:04→21:08)
[2021-04-23 19:00] VITALS: BP 108/69
[2021-04-23] MEDS: ATORVASTATIN CALCIUM 10 MG TABLET. PO SCH (21:08)
[2021-04-23 23:03] VITALS: BP 119/63
[2021-04-24 03:09] VITALS: BP 139/60
[2021-04-24] MEDS: LEVOTHYROXINE 112 MCG TABLET PO SCH (05:49)
[2021-04-24 07:00] VITALS: BP 125/93
[2021-04-24] MEDS: ALBUTEROL SULFATE 8GM INHALER. INH PRN (08:38)
[2021-04-24] MEDS: FLUTICASONE 50MCG/NASAL SPRAY 16GM BOTTLE. NS SCH (08:38)
[2021-04-24] MEDS: FLUTICASONE/VILANTEROL 100/25 INHALER. INH SCH (08:39)
[2021-04-24] MEDS: IPRATROPIUM/ALBUTEROL 20/100mcg/INH INHALER. INH SCH ×4 (08:39→20:00)
[2021-04-24] MEDS: ASPIRIN CHEWABLE 81 MG TABLET. PO SCH (08:40)
[2021-04-24] MEDS: LACTOBACILLUS RHAMNOSUS GG 1 CAPSULE. PO SCH ×2 (08:40→21:59)
[2021-04-24] MEDS: METOPROLOL SUCC 24HR ER 50 MG TAB.ER.24H. PO SCH (08:40)
[2021-04-24] MEDS: DEXAMETHASONE 4 MG TABLET PO SCH (08:40)
[2021-04-24] MEDS: FAMOTIDINE 20 MG TABLET. PO SCH (08:40)
[2021-04-24] MEDS: ENOXAPARIN 40 MG/0.4 ML SYRINGE. SQ SCH (08:41)
--- NOTE | 2021-04-24 10:52 | PN ---
DATE: 04/24/2021 DAILY PROGRESS NOTE LOCATION: She is in room #512. SUBJECTIVE: This 75-year-old female patient of Dr. Jaylon Wilson remains hospitalized with COVID-19 pneumonia, acute hypoxic respiratory failure. She is stable. Nursing has no concerns. They were able to turn her oxygen down this morning to 6. She seems relatively comfortable, but still feels crummy. OBJECTIVE: VITAL SIGNS: Stable. She is afebrile. No change in exam. LABORATORY DATA: No new labs. IMPRESSION: 1. COVID-19 pneumonia with acute hypoxic respiratory failure. 2. History of carcinoma of the lung. 3. Chronic obstructive pulmonary disease. PLAN: Continue supportive care. Help of all consultants continues to be appreciated. HERBIE LYONS: Angela TID: [id number]
[2021-04-24 11:05] VITALS: BP_SYST 143; BP_SYST 57; BP_DIAS 57; BP_DIAS 93
--- NOTE | 2021-04-24 13:37 | PDOC ---
PULMONARY PROGRESS NOTES DATE: 04/24/21 TIME: 13:34 Subjective Remains on nasal cannula 6-7 lpm. doesn't feel good today sob not worse is weak Vitals Vital Signs Date Time Temp Pulse Resp B/P (MAP) Pulse Ox O2 Delivery O2 Flow Rate FiO2 04/24/21 11:05 98.1 57 20 57/93 (81) 94 Nasal Cannula 7.0 98.1 Comments Visual exam done due to COVID-19 pneumonia. nc at rrr No accessory muscle use no skin rash no leg edema. Medications Active Scripts Medications Dose Route/Sig Max Daily Dose Days Date Category Dose Instructions Children's Aspirin (Aspirin) 81 Mg Tab.chew 1 Tab PO DAILY 30 04/15/21 Reported Atorvastatin Calcium 10 Mg Tablet 1 Tab PO DAILY 04/15/21 Reported Proair Hfa Inhaler (Albuterol Sulfate) 8.5 Gm Hfa.aer.ad 2 Puff IH PRN Q4-6HRS PRN 21 04/15/21 Reported Anoro Ellipta 62.5-25 Mcg Inh (Umeclidinium Brm/Vilanterol Tr) 1 Each Disk.w.dev 1 Puff INH DAILY 04/15/21 Reported Hydrocodone-Acetamin 7.5-325 (Hydrocodone/Acetaminophen) 1 Each Tablet 1 Tab PO PRN TID PRN 04/15/21 Reported Promethazine-Dm Syrup (Promethazine/Dextromethorphan) 473 Ml Syrup 5 Ml PO PRN Q6HRS PRN 04/15/21 Reported Benzonatate 100 Mg Capsule 1 Cap PO TID PRN 04/15/21 Reported Metoprolol Succinate ( Xl ) (Metoprolol Succinate) 25 Mg Tab.er.24h 50 Mg PO DAILY 04/15/21 Reported Fluticasone Propionate Nasal [place] (Fluticasone Propionate) 16 Gm [place].susp 1 [place] NS DAILY 04/15/21 Reported Amlodipine Besylate 2.5 Mg Tablet 1 Tab PO DAILY 04/15/21 Reported Levothyroxine Sodium 112 Mcg Tablet 1 Tab PO DAILY 04/15/21 Reported [place] 5-325 Tablet (Acetaminophen/Hydrocodone Bitart) 1 Each Tablet 1-2 Each PO PRN Q6HRS PRN 08/14/19 Rx as needed for pain Impression . 1. Acute on chronic hypoxic respiratory failure secondary to COVID-19 viral pneumonia. 2. Underlying chronic obstructive pulmonary disease with home oxygen dependence. 3. History of lung cancer, diagnosed in 2001. Patient states she has surgery at that time followed by chemo and radiation. Last PET scan from 2015 without any hypermetabolic activity. Plan . 1. Continue oxygen, keep saturations 90 and above. start IS 2. Continue with remdesivir. 3. Dexamethasone per protocol. 4. Empiric antibiotic with Levaquin. 5. Bronchodilators 6. We will follow along with you. WHITNEY FRANKLIN MD Apr 24, 2021 13:37
[2021-04-24 15:03] VITALS: BP 114/65
[2021-04-24] MEDS: guaiFENesin DM 200MG/20MG 10 ML SYRUP PO PRN (17:35)
[2021-04-24] MEDS: BENZONATATE 100 MG CAPSULE. PO PRN ×2 (17:35→22:08)
[2021-04-24 19:00] VITALS: BP 132/75
[2021-04-24] MEDS: ATORVASTATIN CALCIUM 10 MG TABLET. PO SCH (21:59)
[2021-04-24] MEDS: HYDROcodone/APAP 5/325MG 1 TAB TABLET PO PRN (22:08)
[2021-04-24 23:04] VITALS: BP 130/67
[2021-04-25 03:27] VITALS: BP 127/78
[2021-04-25] MEDS: LEVOTHYROXINE 112 MCG TABLET PO SCH (05:58)
[2021-04-25 07:00] VITALS: BP 122/71
--- NOTE | 2021-04-25 08:41 | PDOC ---
Provider Note Date of Service: DATE: 04/25/21 TIME: 08:39 Provider Note less cough, no temp, feels same- exam and O2 need same- angely do labs, dc monitor ,address need for rehab if they can handle O2 needs Justifications for Admission Other Justification ANNA AGUIRRE MD Apr 25, 2021 08:41
[2021-04-25] MEDS: FLUTICASONE/VILANTEROL 100/25 INHALER. INH SCH (09:18)
[2021-04-25] MEDS: IPRATROPIUM/ALBUTEROL 20/100mcg/INH INHALER. INH SCH ×4 (09:18→20:00)
[2021-04-25] MEDS: FLUTICASONE 50MCG/NASAL SPRAY 16GM BOTTLE. NS SCH (09:19)
[2021-04-25] MEDS: BENZONATATE 100 MG CAPSULE. PO PRN (09:21)
[2021-04-25] MEDS: METOPROLOL SUCC 24HR ER 50 MG TAB.ER.24H. PO SCH (09:21)
[2021-04-25] MEDS: ASPIRIN CHEWABLE 81 MG TABLET. PO SCH (09:21)
[2021-04-25] MEDS: FAMOTIDINE 20 MG TABLET. PO SCH (09:21)
[2021-04-25] MEDS: LACTOBACILLUS RHAMNOSUS GG 1 CAPSULE. PO SCH ×2 (09:21→22:54)
[2021-04-25] MEDS: ENOXAPARIN 40 MG/0.4 ML SYRINGE. SQ SCH (09:24)
[2021-04-25 09:58] LABS: BASO % 0 % (0-3); EOS % 0 % (0-3); HEMATOCRIT 38.2 % (36.0-47.0); HEMOGLOBIN 12.4 g/dL (12.0-15.5); LYMPH # 0.7 x10^3/uL (1.0-4.8); LYMPH % 5 % (24-48); MEAN CORPUSCULAR HEMOGLOBIN 28 pg (25-35); MEAN CORPUSCULAR HGB CONC 32 g/dL (31-37); MEAN CORPUSCULAR VOLUME 85 fL (79-100); MONO # 0.7 x10^3/uL (0.0-1.1); MONO % 5 % (0-9); NEUT # 12.3 x10^3/uL (1.8-7.7); NEUT % 90 % (31-73); PLATELET COUNT 302 x10^3/uL (140-400); RED BLOOD COUNT 4.49 x10^6/uL (3.50-5.40); RED CELL DISTRIBUTION WIDTH 17.9 % (11.5-14.5); WHITE BLOOD COUNT 13.8 x10^3/uL (4.0-11.0)
[2021-04-25 10:15] LABS: ALBUMIN 2.3 g/dL (3.4-5.0); ALBUMIN/GLOBULIN RATIO 0.5 (1.0-1.7); CALCIUM 9.3 mg/dL (8.5-10.1); CREATININE 1.2 mg/dL (0.6-1.0); GFR 53.1; POTASSIUM 4.2 mmol/L (3.5-5.1); TOTAL BILIRUBIN 0.6 mg/dL (0.2-1.0); TOTAL PROTEIN 7.3 g/dL (6.4-8.2)
[2021-04-25 11:00] VITALS: BP 146/69
--- NOTE | 2021-04-25 11:17 | NUR ---
SW following. Discussed with RN, pt walked 4 steps with therapy over the weekend and still dropped into the 70s. Pt not medically ready for SNF or home. SW will continue to follow.
[2021-04-25 12:02] LABS: % BANDS 1 % (0-9); % LYMPHS 6 % (24-48); % MONOS 2 % (0-10); % MYELOS 1 % (0-0); % SEGS 90 % (35-66); PLT ESTIMATE ADEQUATE (ADEQUATE)
[2021-04-25 12:03] LABS: ANISOCYTOSIS PRESENT
[2021-04-25 15:00] VITALS: BP 130/77
[2021-04-25 19:00] VITALS: BP 125/67
[2021-04-25] MEDS: ATORVASTATIN CALCIUM 10 MG TABLET. PO SCH (22:54)
[2021-04-25 23:00] VITALS: BP 125/71
[2021-04-26 03:00] VITALS: BP 124/68
[2021-04-26] MEDS: LEVOTHYROXINE 112 MCG TABLET PO SCH (06:25)
[2021-04-26 07:00] VITALS: BP 122/67
[2021-04-26] MEDS: IPRATROPIUM/ALBUTEROL 20/100mcg/INH INHALER. INH SCH ×4 (08:00→20:00)
--- NOTE | 2021-04-26 08:26 | PDOC ---
Provider Note Date of Service: DATE: 04/26/21 TIME: 08:24 Provider Note no temp, status same, exam same, labs all good- still high O2 need- ok off levoflox, still po decadron a few more days, rest same Justifications for Admission Other Justification ANNA AGUIRRE MD Apr 26, 2021 08:26
[2021-04-26] MEDS: FLUTICASONE/VILANTEROL 100/25 INHALER. INH SCH (09:20)
[2021-04-26] MEDS: FAMOTIDINE 20 MG TABLET. PO SCH (09:21)
[2021-04-26] MEDS: ASPIRIN CHEWABLE 81 MG TABLET. PO SCH (09:21)
[2021-04-26] MEDS: guaiFENesin DM 200MG/20MG 10 ML SYRUP PO PRN (09:21)
[2021-04-26] MEDS: LACTOBACILLUS RHAMNOSUS GG 1 CAPSULE. PO SCH ×2 (09:21→21:10)
[2021-04-26] MEDS: DEXAMETHASONE 4 MG TABLET PO SCH (09:21)
[2021-04-26] MEDS: FLUTICASONE 50MCG/NASAL SPRAY 16GM BOTTLE. NS SCH (09:21)
[2021-04-26] MEDS: ENOXAPARIN 40 MG/0.4 ML SYRINGE. SQ SCH (09:22)
[2021-04-26] MEDS: BENZONATATE 100 MG CAPSULE. PO PRN (09:22)
[2021-04-26 11:00] VITALS: BP 140/58
[2021-04-26 15:00] VITALS: BP 120/64
[2021-04-26] MEDS: METOPROLOL SUCC 24HR ER 50 MG TAB.ER.24H. PO SCH (18:06)
[2021-04-26 19:00] VITALS: BP 112/65
[2021-04-26] MEDS: ATORVASTATIN CALCIUM 10 MG TABLET. PO SCH (21:10)
[2021-04-26 23:40] VITALS: BP 135/66
[2021-04-27 03:54] VITALS: BP 133/89
[2021-04-27] MEDS: LEVOTHYROXINE 112 MCG TABLET PO SCH (06:18)
[2021-04-27 07:00] VITALS: BP 110/66
[2021-04-27] MEDS: IPRATROPIUM/ALBUTEROL 20/100mcg/INH INHALER. INH SCH ×4 (08:00→20:28)
[2021-04-27] MEDS: FLUTICASONE/VILANTEROL 100/25 INHALER. INH SCH (08:11)
[2021-04-27] MEDS: ALBUTEROL SULFATE 8GM INHALER. INH PRN ×2 (08:11→20:26)
[2021-04-27] MEDS: ASPIRIN CHEWABLE 81 MG TABLET. PO SCH (08:12)
[2021-04-27] MEDS: DEXAMETHASONE 4 MG TABLET PO SCH (08:12)
[2021-04-27] MEDS: BENZONATATE 100 MG CAPSULE. PO PRN ×2 (08:12→20:26)
[2021-04-27] MEDS: ENOXAPARIN 40 MG/0.4 ML SYRINGE. SQ SCH (08:12)
[2021-04-27] MEDS: FLUTICASONE 50MCG/NASAL SPRAY 16GM BOTTLE. NS SCH (08:12)
[2021-04-27] MEDS: LACTOBACILLUS RHAMNOSUS GG 1 CAPSULE. PO SCH ×2 (08:13→20:26)
[2021-04-27] MEDS: FAMOTIDINE 20 MG TABLET. PO SCH (08:13)
--- NOTE | 2021-04-27 08:26 | PDOC ---
Provider Note Date of Service: DATE: 04/27/21 TIME: 08:25 Provider Note status same, no temp, O2 same- echo pending- will use daily xarelto now in place of shots Justifications for Admission Other Justification ANNA AGUIRRE MD Apr 27, 2021 08:26
[2021-04-27] MEDS: METOPROLOL SUCC 24HR ER 50 MG TAB.ER.24H. PO SCH (08:54)
--- NOTE | 2021-04-27 10:42 | PDOC ---
PULMONARY PROGRESS NOTES DATE: 04/27/21 TIME: 10:35 Subjective Remains on nasal cannula 6- lpm. Vitals Vital Signs Date Time Temp Pulse Resp B/P (MAP) Pulse Ox O2 Delivery O2 Flow Rate FiO2 04/27/21 08:54 84 110/66 04/27/21 07:00 96.4 20 94 Nasal Cannula 96.4 04/26/21 20:00 6.0 Comments Visual exam done due to COVID-19 pneumonia. nc at rrr No accessory muscle use no skin rash no leg edema. Medications Active Scripts Medications Dose Route/Sig Max Daily Dose Days Date Category Dose Instructions Children's Aspirin (Aspirin) 81 Mg Tab.chew 1 Tab PO DAILY 30 04/15/21 Reported Atorvastatin Calcium 10 Mg Tablet 1 Tab PO DAILY 04/15/21 Reported Proair Hfa Inhaler (Albuterol Sulfate) 8.5 Gm Hfa.aer.ad 2 Puff IH PRN Q4-6HRS PRN 21 04/15/21 Reported Anoro Ellipta 62.5-25 Mcg Inh (Umeclidinium Brm/Vilanterol Tr) 1 Each Disk.w.dev 1 Puff INH DAILY 04/15/21 Reported Hydrocodone-Acetamin 7.5-325 (Hydrocodone/Acetaminophen) 1 Each Tablet 1 Tab PO PRN TID PRN 04/15/21 Reported Promethazine-Dm Syrup (Promethazine/Dextromethorphan) 473 Ml Syrup 5 Ml PO PRN Q6HRS PRN 04/15/21 Reported Benzonatate 100 Mg Capsule 1 Cap PO TID PRN 04/15/21 Reported Metoprolol Succinate ( Xl ) (Metoprolol Succinate) 25 Mg Tab.er.24h 50 Mg PO DAILY 04/15/21 Reported Fluticasone Propionate Nasal [place] (Fluticasone Propionate) 16 Gm [place].susp 1 [place] NS DAILY 04/15/21 Reported Amlodipine Besylate 2.5 Mg Tablet 1 Tab PO DAILY 04/15/21 Reported Levothyroxine Sodium 112 Mcg Tablet 1 Tab PO DAILY 04/15/21 Reported [place] 5-325 Tablet (Acetaminophen/Hydrocodone Bitart) 1 Each Tablet 1-2 Each PO PRN Q6HRS PRN 08/14/19 Rx as needed for pain Impression . 1. Acute on chronic hypoxic respiratory failure secondary to COVID-19 viral pneumonia. 2. Underlying chronic obstructive pulmonary disease with home oxygen dependence. 3. History of lung cancer, diagnosed in 2001. Patient states she has surgery at that time followed by chemo and radiation. Last PET scan from 2016 without any hypermetabolic activity. Plan . 1. Continue oxygen, keep saturations 90 and above. Oxygen requirement still at 6 L. She still feels weak and not ready for home 2. Continue with remdesivir. 3. Dexamethasone per protocol. 4. Empiric antibiotic with Levaquin. 5. Bronchodilators 6. We will follow along with you. DAHIANA DECKER MD Apr 27, 2021 10:42
[2021-04-27 11:00] VITALS: BP 116/56
--- NOTE | 2021-04-27 11:38 | NUR ---
SW following. Discussed with RN, pt still requiring extensive oxygen whilst ambulating. Pt having an echo today. COVID-19 positive. Will re-evaluate SNF discussion when pt improving medically. SW will continue to follow.
[2021-04-27 15:00] VITALS: BP 99/79
[2021-04-27] MEDS: RIVAROXABAN 10 MG TABLET. PO SCH (17:32)
[2021-04-27] MEDS: guaiFENesin DM 200MG/20MG 10 ML SYRUP PO PRN (17:33)
[2021-04-27 19:00] VITALS: BP 118/68
[2021-04-27] MEDS: ATORVASTATIN CALCIUM 10 MG TABLET. PO SCH (20:25)
[2021-04-27 23:00] VITALS: BP 133/69
[2021-04-28 03:00] VITALS: BP 134/77
[2021-04-28] MEDS: LEVOTHYROXINE 112 MCG TABLET PO SCH (05:11)
[2021-04-28 07:30] VITALS: BP 115/70
[2021-04-28] MEDS: IPRATROPIUM/ALBUTEROL 20/100mcg/INH INHALER. INH SCH ×4 (07:49→21:12)
[2021-04-28] MEDS: FLUTICASONE/VILANTEROL 100/25 INHALER. INH SCH (07:49)
--- NOTE | 2021-04-28 08:42 | PDOC ---
Provider Note Date of Service: DATE: 04/28/21 TIME: 08:42 Provider Note status same, no temp, still 6 L O2- echo pending, rest same Justifications for Admission Other Justification ANNA AGUIRRE MD Apr 28, 2021 08:42
[2021-04-28] MEDS: FLUTICASONE 50MCG/NASAL SPRAY 16GM BOTTLE. NS SCH (09:00)
[2021-04-28] MEDS: BENZONATATE 100 MG CAPSULE. PO PRN (09:36)
[2021-04-28] MEDS: FAMOTIDINE 20 MG TABLET. PO SCH (09:36)
[2021-04-28] MEDS: ASPIRIN CHEWABLE 81 MG TABLET. PO SCH (09:36)
[2021-04-28] MEDS: LACTOBACILLUS RHAMNOSUS GG 1 CAPSULE. PO SCH ×2 (09:36→21:12)
[2021-04-28] MEDS: guaiFENesin DM 200MG/20MG 10 ML SYRUP PO PRN (09:36)
[2021-04-28] MEDS: METOPROLOL SUCC 24HR ER 50 MG TAB.ER.24H. PO SCH (09:37)
[2021-04-28] MEDS: HYDROcodone/APAP 5/325MG 1 TAB TABLET PO PRN (09:37)
[2021-04-28] MEDS: DEXAMETHASONE 4 MG TABLET PO SCH (09:38)
[2021-04-28 11:19] VITALS: BP 128/69
[2021-04-28 15:30] VITALS: BP 107/69
[2021-04-28] MEDS: RIVAROXABAN 10 MG TABLET. PO SCH (17:41)
[2021-04-28 19:00] VITALS: BP 118/69
[2021-04-28] MEDS: ATORVASTATIN CALCIUM 10 MG TABLET. PO SCH (21:12)
[2021-04-28 23:00] VITALS: BP 108/69
[2021-04-29 03:00] VITALS: BP 140/82
[2021-04-29] MEDS: LEVOTHYROXINE 112 MCG TABLET PO SCH (05:09)
[2021-04-29 07:00] VITALS: BP 110/58
--- NOTE | 2021-04-29 07:51 | RAD ---
EXAMINATION: Chest radiograph. VIEWS: Single view COMPARISON: 04/21/2021 INDICATION:75 years, Female, COVID pneumonia. Follow-up exam. FINDINGS: Normal cardiomediastinal silhouette. Slightly improving focal bilateral perihilar and basilar patchy airspace opacities. No sizable pleural effusion or pneumothorax. No acute osseous process. IMPRESSION: Slightly improving bilateral perihilar and basilar patchy airspace opacities. Electronically signed by: Coretta Wheat MD (04/29/2021 7:49 AM) [facility]
[2021-04-29] MEDS ORDERED: DEXAMETHASONE 4 MG TABLET PO SCH (08:15)
--- NOTE | 2021-04-29 08:17 | PDOC ---
Provider Note Date of Service: DATE: 04/29/21 TIME: 08:17 Provider Note status same, no temp, slow O2 improvement- echo report pending, tapewr off decadron now Justifications for Admission Other Justification ANNA AGUIRRE MD Apr 29, 2021 08:17
[2021-04-29] MEDS: guaiFENesin DM 200MG/20MG 10 ML SYRUP PO PRN (08:36)
[2021-04-29] MEDS: BENZONATATE 100 MG CAPSULE. PO PRN (08:36)
[2021-04-29] MEDS: ASPIRIN CHEWABLE 81 MG TABLET. PO SCH (08:37)
[2021-04-29] MEDS: LACTOBACILLUS RHAMNOSUS GG 1 CAPSULE. PO SCH ×2 (08:37→19:54)
[2021-04-29] MEDS: HYDROcodone/APAP 5/325MG 1 TAB TABLET PO PRN (08:37)
[2021-04-29] MEDS: FLUTICASONE 50MCG/NASAL SPRAY 16GM BOTTLE. NS SCH (08:38)
[2021-04-29] MEDS: IPRATROPIUM/ALBUTEROL 20/100mcg/INH INHALER. INH SCH ×4 (08:38→19:57)
[2021-04-29] MEDS: FAMOTIDINE 20 MG TABLET. PO SCH (08:38)
[2021-04-29] MEDS: FLUTICASONE/VILANTEROL 100/25 INHALER. INH SCH (08:38)
[2021-04-29] MEDS: METOPROLOL SUCC 24HR ER 50 MG TAB.ER.24H. PO SCH (08:38)
--- NOTE | 2021-04-29 10:45 | PDOC ---
PULMONARY PROGRESS NOTES DATE: 04/29/21 TIME: 10:43 Subjective Remains on nasal cannula 5- lpm. Vitals Vital Signs Date Time Temp Pulse Resp B/P (MAP) Pulse Ox O2 Delivery O2 Flow Rate FiO2 04/29/21 08:38 60 140/82 04/29/21 08:37 96 Nasal Cannula 4.5 04/29/21 07:00 97.6 20 97.6 Comments Visual exam done due to COVID-19 pneumonia. nc at rrr No accessory muscle use no skin rash no leg edema. Medications Active Scripts Medications Dose Route/Sig Max Daily Dose Days Date Category Dose Instructions Children's Aspirin (Aspirin) 81 Mg Tab.chew 1 Tab PO DAILY 30 04/15/21 Reported Atorvastatin Calcium 10 Mg Tablet 1 Tab PO DAILY 04/15/21 Reported Proair Hfa Inhaler (Albuterol Sulfate) 8.5 Gm Hfa.aer.ad 2 Puff IH PRN Q4-6HRS PRN 21 04/15/21 Reported Anoro Ellipta 62.5-25 Mcg Inh (Umeclidinium Brm/Vilanterol Tr) 1 Each Disk.w.dev 1 Puff INH DAILY 04/15/21 Reported Hydrocodone-Acetamin 7.5-325 (Hydrocodone/Acetaminophen) 1 Each Tablet 1 Tab PO PRN TID PRN 04/15/21 Reported Promethazine-Dm Syrup (Promethazine/Dextromethorphan) 473 Ml Syrup 5 Ml PO PRN Q6HRS PRN 04/15/21 Reported Benzonatate 100 Mg Capsule 1 Cap PO TID PRN 04/15/21 Reported Metoprolol Succinate ( Xl ) (Metoprolol Succinate) 25 Mg Tab.er.24h 50 Mg PO DAILY 04/15/21 Reported Fluticasone Propionate Nasal [place] (Fluticasone Propionate) 16 Gm [place].susp 1 [place] NS DAILY 04/15/21 Reported Amlodipine Besylate 2.5 Mg Tablet 1 Tab PO DAILY 04/15/21 Reported Levothyroxine Sodium 112 Mcg Tablet 1 Tab PO DAILY 04/15/21 Reported [place] 5-325 Tablet (Acetaminophen/Hydrocodone Bitart) 1 Each Tablet 1-2 Each PO PRN Q6HRS PRN 08/14/19 Rx as needed for pain Comments CXR 04/28 IMPRESSION: Slightly improving bilateral perihilar and basilar patchy airspace opacities. Electronically signed by: Coretta Wheat MD (04/29/2021 7:49 AM) [facility] Impression . 1. Acute on chronic hypoxic respiratory failure secondary to COVID-19 viral pneumonia. 2. Underlying chronic obstructive pulmonary disease with home oxygen dependence. 3. History of lung cancer, diagnosed in 2001. Patient states she has surgery at that time followed by chemo and radiation. Last PET scan from 2015 without any hypermetabolic activity. Plan . 1. Continue oxygen, keep saturations 90 and above. Oxygen requirement at 5 L. She still feels weak and not ready for home. Likely home by Sunday 2. Status post remdesivir. 3. Dexamethasone per protocol. Complete 10 days total. Should be able to discontinue today 4. Status post empiric antibiotic with Levaquin. 5. Bronchodilators 6. Likely discharge on Sunday. 7. Chest x-ray with improving mild interstitial infiltrates 04/28/2021 DAHIANA DECKER MD Apr 29, 2021 10:45
[2021-04-29 11:00] VITALS: BP 123/35
--- NOTE | 2021-04-29 13:03 | NUR ---
SW following. Discussed with RN, pt from home with family, wants to return home with home health. SW made referral to [facility] due to pt being COVID-19 positive, and requiring more oxygen than home oxygen. Pt accepted with [facility]. RN anticipates discharge home Sunday. SW will continue to follow.
[2021-04-29 15:00] VITALS: BP 123/64
[2021-04-29] MEDS: RIVAROXABAN 10 MG TABLET. PO SCH (17:35)
[2021-04-29 19:00] VITALS: BP 120/58
[2021-04-29] MEDS: ATORVASTATIN CALCIUM 10 MG TABLET. PO SCH (19:54)
[2021-04-29 23:58] VITALS: BP 99/79
[2021-04-30] VITALS (7 sets, daily range): BP systolic 93–120; BP diastolic 43–89
[2021-04-30] MEDS: LEVOTHYROXINE 112 MCG TABLET PO SCH (05:02)
[2021-04-30] MEDS: IPRATROPIUM/ALBUTEROL 20/100mcg/INH INHALER. INH SCH ×4 (08:00→20:00)
--- NOTE | 2021-04-30 08:01 | PDOC ---
PULMONARY PROGRESS NOTES DATE: 04/30/21 TIME: 08:00 Subjective on nasal cannula 5- lpm. feels better sob better has occ cough on home 02 2lmp Vitals Vital Signs Date Time Temp Pulse Resp B/P (MAP) Pulse Ox O2 Delivery O2 Flow Rate FiO2 04/30/21 07:12 98.0 54 18 109/65 (80) 96 Nasal Cannula 5.0 98.0 Comments Visual exam done due to COVID-19 pneumonia. a and o no distress nc at rrr No accessory muscle use no skin rash no leg edema. Medications Active Scripts Medications Dose Route/Sig Max Daily Dose Days Date Category Dose Instructions Children's Aspirin (Aspirin) 81 Mg Tab.chew 1 Tab PO DAILY 30 04/15/21 Reported Atorvastatin Calcium 10 Mg Tablet 1 Tab PO DAILY 04/15/21 Reported Proair Hfa Inhaler (Albuterol Sulfate) 8.5 Gm Hfa.aer.ad 2 Puff IH PRN Q4-6HRS PRN 21 04/15/21 Reported Anoro Ellipta 62.5-25 Mcg Inh (Umeclidinium Brm/Vilanterol Tr) 1 Each Disk.w.dev 1 Puff INH DAILY 04/15/21 Reported Hydrocodone-Acetamin 7.5-325 (Hydrocodone/Acetaminophen) 1 Each Tablet 1 Tab PO PRN TID PRN 04/15/21 Reported Promethazine-Dm Syrup (Promethazine/Dextromethorphan) 473 Ml Syrup 5 Ml PO PRN Q6HRS PRN 04/15/21 Reported Benzonatate 100 Mg Capsule 1 Cap PO TID PRN 04/15/21 Reported Metoprolol Succinate ( Xl ) (Metoprolol Succinate) 25 Mg Tab.er.24h 50 Mg PO DAILY 04/15/21 Reported Fluticasone Propionate Nasal [place] (Fluticasone Propionate) 16 Gm [place].susp 1 [place] NS DAILY 04/15/21 Reported Amlodipine Besylate 2.5 Mg Tablet 1 Tab PO DAILY 04/15/21 Reported Levothyroxine Sodium 112 Mcg Tablet 1 Tab PO DAILY 04/15/21 Reported [place] 5-325 Tablet (Acetaminophen/Hydrocodone Bitart) 1 Each Tablet 1-2 Each PO PRN Q6HRS PRN 08/14/19 Rx as needed for pain Comments CXR 04/28 IMPRESSION: Slightly improving bilateral perihilar and basilar patchy airspace opacities. Electronically signed by: Coretta Wheat MD (04/29/2021 7:49 AM) [facility] Impression . 1. Acute on chronic hypoxic respiratory failure secondary to COVID-19 viral pneumonia. 2. Underlying chronic obstructive pulmonary disease with home oxygen dependence. 3. History of lung cancer, diagnosed in 2001. Patient states she has surgery at that time followed by chemo and radiation. Last PET scan from 2016 without any hypermetabolic activity. Plan . 1. titrate fi02 to keep saturations 90%. now on 5 L. IS to use multiple times an hr 2. Status post remdesivir. 3. Dexamethasone per protocol. Complete 10 days total. Should be able to discontinue today 4. Status post empiric antibiotic with Levaquin. 5. Bronchodilators 6. Likely discharge on Sunday. 7. Chest x-ray reviewed with improving mild interstitial infiltrates 04/28/2021 WHITNEY FRANKLIN MD Apr 30, 2021 08:01
[2021-04-30] MEDS: FAMOTIDINE 20 MG TABLET. PO SCH (08:52)
[2021-04-30] MEDS: METOPROLOL SUCC 24HR ER 50 MG TAB.ER.24H. PO SCH (08:52)
[2021-04-30] MEDS: LACTOBACILLUS RHAMNOSUS GG 1 CAPSULE. PO SCH ×2 (08:52→21:04)
[2021-04-30] MEDS: ASPIRIN CHEWABLE 81 MG TABLET. PO SCH (08:52)
[2021-04-30] MEDS: FLUTICASONE 50MCG/NASAL SPRAY 16GM BOTTLE. NS SCH (08:53)
[2021-04-30] MEDS: FLUTICASONE/VILANTEROL 100/25 INHALER. INH SCH (08:53)
--- NOTE | 2021-04-30 14:19 | PDOC ---
Provider Note Date of Service: DATE: 04/30/21 TIME: 14:19 Provider Note VSS, NO TEMP, o 2 OK, PLAN FOR SUNDAY DC TO HOME Justifications for Admission Other Justification ANNA AGUIRRE MD Apr 30, 2021 14:19
[2021-04-30] MEDS ORDERED: ANTI-COAG MONITOR BY PHARMACY. MC PRN (16:30)
[2021-04-30] MEDS: RIVAROXABAN 10 MG TABLET. PO SCH (17:27)
[2021-04-30] MEDS: ATORVASTATIN CALCIUM 10 MG TABLET. PO SCH (21:04)
[2021-05-01 03:50] VITALS: BP 95/71
[2021-05-01] MEDS: LEVOTHYROXINE 112 MCG TABLET PO SCH (05:12)
[2021-05-01 07:00] VITALS: BP 112/63
[2021-05-01] MEDS: IPRATROPIUM/ALBUTEROL 20/100mcg/INH INHALER. INH SCH ×4 (08:00→20:00)
[2021-05-01] MEDS: ASPIRIN CHEWABLE 81 MG TABLET. PO SCH (08:37)
[2021-05-01] MEDS: FAMOTIDINE 20 MG TABLET. PO SCH (08:37)
[2021-05-01] MEDS: LACTOBACILLUS RHAMNOSUS GG 1 CAPSULE. PO SCH ×2 (08:37→21:07)
[2021-05-01] MEDS: METOPROLOL SUCC 24HR ER 50 MG TAB.ER.24H. PO SCH (08:38)
[2021-05-01] MEDS: FLUTICASONE/VILANTEROL 100/25 INHALER. INH SCH (08:38)
[2021-05-01] MEDS: FLUTICASONE 50MCG/NASAL SPRAY 16GM BOTTLE. NS SCH (08:38)
--- NOTE | 2021-05-01 09:23 | PDOC ---
Provider Note Date of Service: DATE: 05/01/21 TIME: 09:22 Provider Note STATUS SAME, EXAM SAME- OFF DEXA, 6 MIN WALK PENDING- HOME IN AM Justifications for Admission Other Justification ANNA AGUIRRE MD May 01, 2021 09:23
--- NOTE | 2021-05-01 09:25 | SNU/HH DC ---
DISCHARGE WITH HOME HEALTH DISCHARGE INFORMATION: Final Diagnosis: Problems Medical Problems: (1) Pneumonia due to COVID-19 virus Status: Acute Condition on Discharge: Stable CODE STATUS: Code Status: Full HOME HEALTH: Face to Face: I certify this patient is under my care and that I, or a nurse practitioner or physician's microbiology lab assistant working with me, had a face to face encounter that meets the physician face to face encounter requirements with this patient on []. Medical Complications: Pneumonia RN For Eval/Treatment: No Physical Therapy For: Evalulation/Treatment Home Health Aide For: Self-care Pt Meets Homebound Status: Extreme weakness w/ amb. POST DISCHARGE ORDERS: DIET AFTER DISCHARGE: Regular CERTIFICATION STATEMENT: Certification Statement: Certification Statement: Based on the above finding, I certify that this patient is confined to the home and needs intermittent senior living care, physical therapy and/or speech therapy, or continues to need occupational therapy.~ This patient is under my care, and I have initiated the establishment of the plan of care.~ This patient will be followed by myself or a community physician who will periodically review the plan of care. Home Meds Active Scripts Hydrocodone/Apap 5-325 ([place] 5-325 TABLET) 1 Each Tablet, 1-2 EACH PO PRN Q6HRS PRN for PAIN, #15 as needed for pain Prov:BRITTNI SCHMITZ Jr. DO 08/14/19 Reported Medications Aspirin (Children's Aspirin) 81 Mg Tab.chew, 1 TAB PO DAILY for heart for 30 Days, #30 TAB 0 Refills 04/15/21 Atorvastatin Calcium (ATORVASTATIN CALCIUM) 10 Mg Tablet, 1 TAB PO DAILY for hld 04/15/21 Albuterol Sulfate (PROAIR HFA INHALER) 8.5 Gm Hfa.aer.ad, 2 PUFF IH PRN Q4-6HRS PRN for wheezing for 21 Days, #1 INHALER 0 Refills 04/15/21 Umeclidinium Brm/Vilanterol Tr (ANORO ELLIPTA 62.5-25 MCG INH) 1 Each Disk.w.dev, 1 PUFF INH DAILY for copd 04/15/21 Hydrocodone/Acetaminophen (Hydrocodone-Acetamin 7.5-325) 1 Each Tablet, 1 TAB PO PRN TID PRN for PAIN 04/15/21 Promethazine/Dextromethorphan (Promethazine-Dm Syrup) 473 Ml Syrup, 5 ML PO PRN Q6HRS PRN for cough 04/15/21 Benzonatate (BENZONATATE) 100 Mg Capsule, 1 CAP PO TID PRN for cough 04/15/21 Metoprolol Succinate (METOPROLOL SUCCINATE ( XL )) 25 Mg Tab.er.24h, 50 MG PO DAILY for htn 04/15/21 Fluticasone Propionate (FLUTICASONE PROPIONATE NASAL SPRAY) 16 Gm [place].susp, 1 [place] NS DAILY for allergies 04/15/21 Amlodipine Besylate (AMLODIPINE BESYLATE) 2.5 Mg Tablet, 1 TAB PO DAILY for htn 04/15/21 Levothyroxine Sodium (LEVOTHYROXINE SODIUM) 112 Mcg Tablet, 1 TAB PO DAILY for hypothyroid 04/15/21 ANNA AGUIRRE MD May 01, 2021 09:25
[2021-05-01 11:00] VITALS: BP 117/68
[2021-05-01 15:00] VITALS: BP 104/53
[2021-05-01] MEDS: RIVAROXABAN 10 MG TABLET. PO SCH (17:24)
[2021-05-01 19:00] VITALS: BP 122/66
[2021-05-01] MEDS: ATORVASTATIN CALCIUM 10 MG TABLET. PO SCH (21:07)
[2021-05-01 22:57] VITALS: BP 122/65
[2021-05-02 03:00] VITALS: BP 111/64
[2021-05-02] MEDS: LEVOTHYROXINE 112 MCG TABLET PO SCH (05:36)
[2021-05-02 07:00] VITALS: BP 128/62
[2021-05-02] MEDS: IPRATROPIUM/ALBUTEROL 20/100mcg/INH INHALER. INH SCH ×2 (08:00→12:00)
[2021-05-02] MEDS: FLUTICASONE 50MCG/NASAL SPRAY 16GM BOTTLE. NS SCH (08:25)
[2021-05-02] MEDS: FLUTICASONE/VILANTEROL 100/25 INHALER. INH SCH (08:25)
[2021-05-02] MEDS: ASPIRIN CHEWABLE 81 MG TABLET. PO SCH (08:26)
[2021-05-02] MEDS: FAMOTIDINE 20 MG TABLET. PO SCH (08:26)
[2021-05-02] MEDS: LACTOBACILLUS RHAMNOSUS GG 1 CAPSULE. PO SCH (08:26)
[2021-05-02] MEDS: guaiFENesin DM 200MG/20MG 10 ML SYRUP PO PRN (08:26)
[2021-05-02] MEDS: BENZONATATE 100 MG CAPSULE. PO PRN (08:26)
--- NOTE | 2021-05-02 08:28 | PDOC ---
Provider Note Date of Service: DATE: 05/02/21 TIME: 08:27 Provider Note [id number] Justifications for Admission Other Justification ANNA AGUIRRE MD May 02, 2021 08:28
--- NOTE | 2021-05-02 08:49 | DS ---
DATE OF DISCHARGE: 05/02/2021 HOSPITAL SUMMARY: A 75-year-old black female with known oxygen dependent COPD and a previous history of lung cancer, had COVID diagnosed several days prior to admission and got increasingly short of breath. X-ray showed bilateral interstitial infiltrates consistent with COVID pneumonia and x-ray remained stable through the hospital stay with slight improvement by 04/28. CBC showed mild leukocytosis. Chemistry profile was unremarkable and sputum and blood cultures were unremarkable as well. She was treated with IV remdesivir and steroids throughout the hospital stay and oral Levaquin for one week. She has gradually improved to the point where after her 6-minute walk today to assess oxygen need, she will be discharged and followed as an outpatient. FINAL DIAGNOSIS: Acute COVID pneumonia with secondary hypoxia. OPERATIONS, PROCEDURES, COMPLICATIONS: None. CONSULTATIONS: Samuel Khan MD and David Miller MD DISPOSITION: Home meds remain the same. No new medications, on oxygen for 6-minute walk. She uses Anoro and ProAir inhalers at home and they will remain the same and her prognosis is good. Office followup in one to two weeks for further assessment as needed. She has already been vaccinated against COVID. DESTINI DR: Norris TID: [id number]
[2021-05-02] MEDS: METOPROLOL SUCC 24HR ER 50 MG TAB.ER.24H. PO SCH (09:51)
--- NOTE | 2021-05-02 10:35 | NUR ---
MONTRELL following. Discussed with RN, ptv from home with family, 3.5L (uses 2L at home), cardiac diet. Discharge order for home with home health after 6 minute walk. Pt is accepted with [facility]. MONTRELL left VM for pt's daughter, Alonso to determine home oxygen company. MONTRELL will continue to follow. Addendum: 05/02/21 at 1454 by LISA STOCK Pt has [employer] at home, needs 4L at rest and 8L with exertion. [employer] notified. Tank provided to pt for discharge home. RN notified.
[2021-05-02 11:00] VITALS: BP 118/62
[2021-05-02 15:00] VITALS: BP 108/57
--- NOTE | 2021-05-02 19:22 | NUR ---
Discharge Note: VALERIE MOHAN SIDNEY Discharge instructions and discharge home medications reviewed with the patient and a copy given. All questions have been answered and understanding verbalized. The following instructions and handouts were given: Home oxygen 4 liters at rest 8 liters with exertion. COVID precautions. Home meds as directed, antibiotics completed in the hospital Follow up with Dr. Wilson in 2 weeks. Seek emergent care for severe chest pain, severe dyspnea. Patient discharged to home with on 4 LPM nasal cannula via wheelchair at 1710.
== END 2021-05-02 17:10 | disposition home health service (06) | DRG 177 ==
LOC: ER 09:58 → ED HOLD 15:54 → 5 NORTH 19:22
PROVIDERS: ADMIT Family Medicine; ATTEND Family Medicine
PROC: XW033E5 Introduction of Remdesivir Anti-infective into Peripheral Vein, Percutaneous Approach, New Technology Group 5 (ICD-10-PCS; principal; 2021-04-16)
PROC: 5A09357 Assistance with Respiratory Ventilation, Less than 24 Consecutive Hours, Continuous Positive Airway Pressure (ICD-10-PCS; 2021-04-17)
PROC: 5A09357 Assistance with Respiratory Ventilation, Less than 24 Consecutive Hours, Continuous Positive Airway Pressure (ICD-10-PCS; 2021-04-19)
PROC: 5A09357 Assistance with Respiratory Ventilation, Less than 24 Consecutive Hours, Continuous Positive Airway Pressure (ICD-10-PCS; 2021-04-20)
PROC: 5A09357 Assistance with Respiratory Ventilation, Less than 24 Consecutive Hours, Continuous Positive Airway Pressure (ICD-10-PCS; 2021-04-23)
PROC: 5A09357 Assistance with Respiratory Ventilation, Less than 24 Consecutive Hours, Continuous Positive Airway Pressure (ICD-10-PCS; 2021-04-24)
DX: U07.1 COVID-19 (principal); J12.82 Pneumonia due to coronavirus disease 2019; J96.21 Acute and chronic respiratory failure with hypoxia; I10 Essential (primary) hypertension; J43.9 Emphysema, unspecified; Z85.118 Personal history of other malignant neoplasm of bronchus and lung; Z87.891 Personal history of nicotine dependence; Z90.710 Acquired absence of both cervix and uterus; Z99.81 Dependence on supplemental oxygen; Z79.899 Other long term (current) drug therapy; Z92.21 Personal history of antineoplastic chemotherapy; Z92.3 Personal history of irradiation
CPT/HCPCS: 36415; 36600; 71045; 80053; 82805; 83605; 83880; 84484; 85007; 85025; 87040; 87070; 87205; 93005; 94618; 96361; 96365; 96366; 96375; G0238; J0456; J1100; J1650; J2405; J7030; J7040; J7050; 97110-GP; 97116-GP; 97530-GO; 97530-GP; 97535-GO; 99285-25; G0378

== ENCOUNTER → 2021-11-16 | Outpatient (CLI) | payer BC ==
[2021-05-18 22:00] VITALS: BP 128/99
[~2021-11-16] MED LIST changes: +ALBU2.5V8 IH; +ALBU2.5V8 INH; +AMLO2.5T5 PO; +ASPI81TA59 PO; +ATOR10TA60 PO; +BENZ-8 PO; +D-ME473S14 PO; +FLUT16SP NS; +HYDR-2763 PO; +LEVO112T49 PO; +METO-239 PO; +UMEC1DIS INH
--- NOTE | 2021-11-16 17:33 | KCIC ---
STUDY: MRI of the right shoulder without contrast INDICATION: Right shoulder pain. COMPARISON: No previous MRI. TECHNIQUE: Multiplanar MR imaging of the right shoulder performed without the use of intravenous or i ntra-articular contrast. FINDINGS: Partially degraded study on account of patient motion. AC joint: Mild arthrosis. Small amount of fluid within the subacromial subdeltoid bursa but not to th e extent to be considered bursitis measuring less than 3 mm in thickness. Rotator cuff: Full-thickness insertional tear of the anterior to mid supraspinatus on a background of tendinosis and tendon thinning. The full-thickness tear defect is measured at 9 mm mediolateral by 1 2 mm AP. Infraspinatus tendinosis without a high-grade or full-thickness tear. Intact teres minor and subscapularis. Mild fatty infiltration without significant atrophy of the supraspinatus and infraspi natus. Mild atrophy and fatty infiltration of the teres minor. Labrum: Degenerative tearing of the posterior/superior labrum. Long head biceps tendon: Intact and normally located. Cartilage: Partial thickness chondrosis along the glenoid and humeral head. Bones: No acute or aggressive abnormality. Degenerative remodeling at the tuberosities and mild gleno id osteophytic ridging. Miscellaneous: No significant joint effusion. Unremarkable axillary soft tissues. Impression: 1. Full-thickness insertional tear of the anterior to mid supraspinatus measuring approximately 9 mm mediolateral by 12 mm AP. Background tendinosis and thinning of the supraspinatus. Infraspinatus ten dinosis without an additional significant tear. 2. Degenerative tearing at the posterior/superior labrum. Intact and normally located long head mayte ps. 3. Mild glenohumeral and AC joint arthrosis. Electronically signed by: LIANA ROGERS MD (11/16/2021 5:31 PM) [id number]
== END ==
LOC: KCIC MRI 14:29
PROVIDERS: ATTEND Orthopaedic Surgery
DX: S43.431A Superior glenoid labrum lesion of right shoulder, initial encounter (principal); M75.122 Complete rotator cuff tear or rupture of left shoulder, not specified as traumatic; M75.31 Calcific tendinitis of right shoulder; M62.89 Other specified disorders of muscle; X58.XXXA Exposure to other specified factors, initial encounter; Y93.89 Activity, other specified; Y92.89 Other specified places as the place of occurrence of the external cause; Y99.8 Other external cause status
CPT/HCPCS: 73221

== ENCOUNTER 2022-01-06 14:15 | Inpatient (IN) | payer BC, MEDICARE ==
[~2022-01-06] VITALS: Ht 160 cm; Wt 86.5 kg
[2022-01-06] MEDS ORDERED: methylPREDNISolone SOD SUCC PF 125 MG/2 ML VIAL. IV ONE (14:45)
[2022-01-06] MEDS ORDERED: DOXYCYCLINE HYCLATE 100 MG in IV DEXTROSE 5% 100ML 100 ML IV ONE (14:45)
[2022-01-06] MEDS ORDERED: cefTRIAXone IV Push 1 GM VIAL. IVP ONE (14:45)
--- NOTE | 2022-01-06 14:54 | PHYS DOC ---
Past Medical History Past Medical History: Cancer, COPD, Hypertension, Pneumonia Additional Past Medical Histor: emphysema, palpitations, covid Past Surgical History: No Surgical History Additional Past Surgical Histo: lung biopsy Smoking Status: Former Smoker Alcohol Use: None Drug Use: None General Adult EDM: Chief Complaint: FLU SYMPTOM HPI: HPI: Patient is a 76-year-old female that presents today with increased shortness of breath. Patient states that last week she started having increased shortness of breath went and saw her physician Dr. Wilson and was placed on amoxicillin on Sunday, she said she was taking doses of amoxicillin and she said the last 2 days her shortness of breath has been increased and she is presented here for further evaluation and management of this. Patient states that she does have a history of emphysema for which she is O2 dependent at 2 L per nasal cannula she is managed by pulmonary at [facility] for her lung disease. Patient states she has completed COVID and influenza vaccines. Patient states she has not had to turn up her oxygen but states that she feels short of breath with large amount of movement, when she blows her nose or coughs her sputum and nasal secretions are green in color. She states she has not been placed on steroids since her hospitalization back in April 2021. Review of Systems: Review of Systems: Constitutional: Denies fever or chills. [] Eyes: Denies change in visual acuity. [] HENT: Denies nasal congestion or sore throat. [] Respiratory: cough or shortness of breath. [] Cardiovascular: Denies chest pain or edema. [] GI: Denies abdominal pain, nausea, vomiting, bloody stools or diarrhea. [] : Denies dysuria. [] Musculoskeletal: Denies back pain or joint pain. [] Integument: Denies rash. [] Neurologic: Denies headache, focal weakness or sensory changes. [] Endocrine: Denies polyuria or polydipsia. [] Lymphatic: Denies swollen glands. [] Psychiatric: Denies depression or anxiety. [] Heart Score: C/O Chest Pain: No Risk Factors: Risk Factors: DM, Current or recent (<one month) smoker, HTN, HLP, family history of CAD, obesity. Risk Scores: Score 0 - 3: 2.5% MACE over next 6 weeks - Discharge Home Score 4 - 6: 20.3% MACE over next 6 weeks - Admit for Clinical Observation Score 7 - 10: 72.7% MACE over next 6 weeks - Early Invasive Strategies Current Medications: Current Medications Medications (Trade) Dose Ordered Sig/Jimenez Start Time Stop Time Status Last Admin Dose Admin Ceftriaxone Sodium (Rocephin) 1 gm 1X ONCE 01/06/22 14:45 01/06/22 14:46 DC Doxycycline Hyclate 100 mg/ Dextrose 100 ml @ 50 mls/hr 1X ONCE 01/06/22 14:45 01/06/22 16:44 Methylprednisolone Sodium Succinate (SOLU-Medrol 125MG VIAL) 125 mg 1X ONCE 01/06/22 14:45 01/06/22 14:46 DC Allergies: Allergies: Allergies Coded Allergies Type Severity Reaction Last Updated Verified nalbuphine Allergy Intermediate 04/15/21 Yes Physical Exam: PE: Constitutional: Well developed, well nourished, mild distress, non-toxic appearance. [] HENT: Normocephalic, atraumatic, bilateral external ears normal, oropharynx moist, no oral exudates, nose secretions are green. [] Eyes: PERRLA, EOMI, conjunctiva normal, no discharge. [] Neck: Normal range of motion, no tenderness, supple, no stridor. [] Cardiovascular:Heart rate regular rhythm, no murmur [] Lungs & Thorax: Bilateral breath sounds diminished in bases increase work of breathing noted, O2 2L n/c Abdomen: Bowel sounds normal, soft, no tenderness, no masses, no pulsatile masses. [] Skin: Warm, dry, no erythema, no rash. [] Back: No tenderness, no CVA tenderness. [] Extremities: No tenderness, no cyanosis, no clubbing, ROM intact, no edema. [] Neurologic: Alert and oriented X 3, normal motor function, normal sensory function, no focal deficits noted. [] Psychologic: Affect normal, judgement normal, mood normal. [] Current Patient Data: Labs: Laboratory Tests Test 01/06/22 15:00 White Blood Count 9.2 x10^3/uL Red Blood Count 4.55 x10^6/uL Hemoglobin 12.4 g/dL Hematocrit 38.2 % Mean Corpuscular Volume 84 fL Mean Corpuscular Hemoglobin 27 pg Mean Corpuscular Hemoglobin Concent 33 g/dL Red Cell Distribution Width 19.5 % Platelet Count 197 x10^3/uL Neutrophils (%) (Auto) 81 % Lymphocytes (%) (Auto) 11 % Monocytes (%) (Auto) 7 % Eosinophils (%) (Auto) 1 % Basophils (%) (Auto) 1 % Neutrophils # (Auto) 7.4 x10^3/uL Lymphocytes # (Auto) 1.0 x10^3/uL Monocytes # (Auto) 0.7 x10^3/uL Eosinophils # (Auto) 0.0 x10^3/uL Basophils # (Auto) 0.1 x10^3/uL Sodium Level 141 mmol/L Potassium Level 4.1 mmol/L Chloride Level 105 mmol/L Carbon Dioxide Level 25 mmol/L Anion Gap 11 Blood Urea Nitrogen 18 mg/dL Creatinine 1.3 mg/dL Estimated GFR (Cockcroft-Gault) 48.3 BUN/Creatinine Ratio 14 Glucose Level 111 mg/dL Lactic Acid Level 1.6 mmol/L Calcium Level 9.1 mg/dL Total Bilirubin 1.0 mg/dL Aspartate Amino Transf (AST/SGOT) 14 U/L Alanine Aminotransferase (ALT/SGPT) 19 U/L Alkaline Phosphatase 90 U/L Troponin I High Sensitivity 55 ng/L VG-Yyn-L-Type Natriuretic Peptide 121 pg/mL Total Protein 8.0 g/dL Albumin 3.1 g/dL Albumin/Globulin Ratio 0.6 Influenza Type A Antigen Negative Influenza Type B Antigen Negative SARS-CoV-2 Antigen (Rapid) Negative Current Medications Medications (Trade) Dose Ordered Sig/Jimenez Route PRN Reason Start Time Stop Time Status Last Admin Dose Admin Methylprednisolone Sodium Succinate (SOLU-Medrol 125MG VIAL) 125 mg 1X ONCE IV 01/06/22 14:45 01/06/22 14:46 DC 01/06/22 15:17 Ceftriaxone Sodium (Rocephin) 1 gm 1X ONCE IVP 01/06/22 14:45 01/06/22 14:46 DC 01/06/22 15:17 Doxycycline Hyclate 100 mg/ Dextrose 100 ml @ 50 mls/hr 1X ONCE IV 01/06/22 14:45 01/06/22 16:44 01/06/22 15:17 Vital Signs: Vital Signs Date Time Temp Pulse Resp B/P (MAP) Pulse Ox O2 Delivery O2 Flow Rate FiO2 01/06/22 15:57 69 23 147/66 (93) 99 Nasal Cannula 2.0 01/06/22 15:27 74 26 132/65 (87) 99 Nasal Cannula 2.0 01/06/22 14:57 81 26 147/60 (89) 93 Nasal Cannula 2.0 01/06/22 14:30 99.9 90 24 147/86 (106) 98 Nasal Cannula 2.0 99.9 EKG: EKG: [] Radiology/Procedures: Radiology/Procedures: REASON: SHORTNESS OF BREATH PROCEDURE: PORTABLE CHEST 1V Single view chest dated 01/06/2022 3:49 PM: COMPARISON: 04/28/2021 Clinical Indication: Shortness of breath. Findings: Single upright portable exam of the chest was performed. Heart and mediastinal contours are stable. Patchy bilateral airspace disease, similar to prior study. Surgical clips at the right hilum, unchanged. No new infiltrate or pleural effusion. No pneumothorax. IMPRESSION: 1. Perihilar and bibasilar airspace disease, similar to prior study. Findings could be chronic. Recurrent edema or pneumonia not excluded. Electronically signed by: Sarthak Dye MD (01/06/2022 3:51 PM) [facility] Course & Med Decision Making: Course & Med Decision Making Pertinent Labs and Imaging studies reviewed. (See chart for details) [address] Wilson regarding this patient's current status and he is agreeable to admitting the patient since she was on outpatient therapy and has had worsening of symptoms, he has recommended that the patient see pulmonary while here in the hospital and I will consult pulmonary to see the patient. Patient is agreeable to the plan of care. Anne Marie Disclaimer: Anne Marie Disclaimer: This electronic medical record was generated, in whole or in part, using a voice recognition dictation system. Departure Departure Impression: Primary Impression: COPD exacerbation Additional Impression: Pneumonia Qualified Codes: J18.9 - Pneumonia, unspecified organism Disposition: ADMITTED INPATIENT Admitting Physician: Anna Wilson Condition: STABLE Referrals: ANNA WILSON MD (PCP) DU AZAR [employer] January 06, 2022 14:54
[2022-01-06 15:09] LABS: BASO # 0.1 x10^3/uL (0.0-0.2); BASO % 1 % (0-3); EOS % 1 % (0-3); HEMATOCRIT 38.2 % (36.0-47.0); HEMOGLOBIN 12.4 g/dL (12.0-15.5); LYMPH % 11 % (24-48); MEAN CORPUSCULAR HEMOGLOBIN 27 pg (25-35); MEAN CORPUSCULAR HGB CONC 33 g/dL (31-37); MEAN CORPUSCULAR VOLUME 84 fL (79-100); MONO # 0.7 x10^3/uL (0.0-1.1); MONO % 7 % (0-9); NEUT # 7.4 x10^3/uL (1.8-7.7); NEUT % 81 % (31-73); PLATELET COUNT 197 x10^3/uL (140-400); RED BLOOD COUNT 4.55 x10^6/uL (3.50-5.40); RED CELL DISTRIBUTION WIDTH 19.5 % (11.5-14.5); WHITE BLOOD COUNT 9.2 x10^3/uL (4.0-11.0)
[2022-01-06 15:28] LABS: CALCIUM 9.1 mg/dL (8.5-10.1); CREATININE 1.3 mg/dL (0.6-1.0); GFR 48.3; POTASSIUM 4.1 mmol/L (3.5-5.1)
[2022-01-06 15:42] LABS: ALBUMIN 3.1 g/dL (3.4-5.0); ALBUMIN/GLOBULIN RATIO 0.6 (1.0-1.7)
[2022-01-06 15:53] LABS: INFLUENZA A PATIENT NEGATIVE (NEGATIVE); INFLUENZA B PATIENT NEGATIVE (NEGATIVE)
--- NOTE | 2022-01-06 15:53 | RAD ---
Single view chest dated 01/06/2022 3:49 PM: COMPARISON: 04/28/2021 Clinical Indication: Shortness of breath. Findings: Single upright portable exam of the chest was performed. Heart and mediastinal contours are stable. P atchy bilateral airspace disease, similar to prior study. Surgical clips at the right hilum, unchange d. No new infiltrate or pleural effusion. No pneumothorax. IMPRESSION: 1. Perihilar and bibasilar airspace disease, similar to prior study. Findings could be chronic. Recur rent edema or pneumonia not excluded. Electronically signed by: Sarthak Dye MD (01/06/2022 3:51 PM) YULY
[2022-01-06] MEDS ORDERED: ALBUTEROL SULFATE 2.5 MG/3 ML NEBU. NEB PRN (16:45)
[2022-01-06 18:45] VITALS: BP 126/60
[2022-01-06] MEDS: methylPREDNISolone SOD SUCC PF 125 MG/2 ML VIAL. IV SCH (22:18)
[2022-01-06 23:21] VITALS: BP 140/72
[2022-01-06] MEDS ORDERED: AMOX500C PO (23:34)
[2022-01-06] MEDS ORDERED: HYDR12.59 PO (23:34)
--- NOTE | 2022-01-07 00:03 | EKG ---
[facility] [address] [place] [address] Test Date: 2022-01-06 Test Time: 15:15:14 Pat Name: CURT MOHAN Department: Room: [facility] Gender: F Processing Clerk: : [id number] Requested By: DU AZAR Order Number: [id number] Reading MD: Fuentes Segovia MD Measurements Intervals [place] Rate: 84 P: 52 FL: 150 QRS: 34 QRSD: 78 T: 26 QT: 366 QTc: 436 Interpretive Statements SINUS RHYTHM Electronically Signed On 01-09-2022 9:01:35 CDT by Fuentes Segovia MD
[2022-01-07 03:13] VITALS: BP 136/70
[2022-01-07] MEDS: methylPREDNISolone SOD SUCC PF 125 MG/2 ML VIAL. IV SCH ×3 (05:55→22:57)
[2022-01-07 06:35] VITALS: BP 134/56
[2022-01-07] MEDS: hydroCHLOROthiazide 12.5 MG TABLET PO SCH (07:59)
[2022-01-07] MEDS: ATORVASTATIN CALCIUM 10 MG TABLET. PO SCH (07:59)
[2022-01-07] MEDS: METOPROLOL SUCC 24HR ER 25 MG TAB.ER.24H. PO SCH (07:59)
[2022-01-07] MEDS: LEVOTHYROXINE 112 MCG TABLET PO SCH (08:00)
[2022-01-07] MEDS: ACETAMINOPHEN 325 MG TABLET. PO PRN ×2 (08:00→14:44)
--- NOTE | 2022-01-07 09:19 | HP ---
DATE OF SERVICE: 01/07/2022 ADMIT DATE: 01/06/2022 CHIEF COMPLAINT AND HISTORY OF PRESENT ILLNESS: This 76-year-old female presented because of shortness of breath to the Emergency Room. She had 3 days of cough, chills, aches, sweats and became progressively worse with more short of breath on the day of admission. She has been taking amoxicillin for a couple of days. She has a history of COPD and is O2 dependent at 2 liters. She is up to date on COVID and influenza vaccines and were negative for both on admission. She was felt to have an exacerbation of COPD and admitted for the same. PAST MEDICAL HISTORY: Remarkable for hypertension, pneumonia, COPD. She had prior COVID. PAST SURGICAL HISTORY: Includes a lung biopsy. MEDICATIONS: Brought with the patient, listed on the computer have been addressed. ALLERGIES: SHE IS ALLERGIC TO NALBUPHINE. SOCIAL HISTORY: She is a former smoker, nondrinker, does not use drugs. FAMILY HISTORY: Noncontributory. REVIEW OF SYSTEMS: As mentioned above. PHYSICAL EXAMINATION: GENERAL: She is a well-developed, well-nourished female who appears ill. VITAL SIGNS: Stable. She has been afebrile since admission. HEAD, EYES, EARS, NOSE AND THROAT: Unremarkable. NECK: Supple without adenopathy or thyromegaly. CHEST: Reveals decreased breath sounds bilaterally with occasional expiratory wheeze. HEART: Regular rate and rhythm without S3, S4 or murmur. ABDOMEN: Soft and nontender without hepatosplenomegaly or mass. EXTREMITIES: Without cyanosis, clubbing or edema. NEUROLOGIC: She is intact. LABORATORY DATA: Today to include negative COVID and influenza screening. Creatinine is 1.3, albumin is 3.1. White count is normal at 9200 with some slight left shift, 81% neutrophils. Chest x-ray on admission shows evidence of perihilar and bibasilar airspace disease, similar to prior studies. Findings could be chronic or recurrent edema or a pneumonia not excluded. ASSESSMENT: Exacerbation of chronic obstructive pulmonary disease with likely pneumonia clinically. PLAN: IV fluids, IV antibiotics, pulmonary toilet, steroids, pulmonary consultation if needed. PAUL DR: Angela TID: [id number]
--- NOTE | 2022-01-07 09:26 | CONS ---
PULMONARY CONSULTATION ATTENDING PHYSICIAN: Jaylon Wilson MD REASON FOR CONSULTATION: Pneumonia. HISTORY OF PRESENT ILLNESS: The patient is a 76-year-old female who is obese with a BMI of 33. The patient has a history of tobacco use for 20 years. She quit 30 years ago. She was brought into the hospital with increasing cough, which was productive of yellow sputum. She has some chills, but no fever. The patient has some sweating as well. She had no leg edema. No chest pain. No headache, no nausea, vomiting or diarrhea. The patient's chest x-ray was reviewed and it shows basilar interstitial infiltrates. I have also reviewed the patient's chest x-ray from April of last year and there were infiltrates seen at that time. The patient also had COVID at the same time. The patient is normally on home oxygen at 2-3 liters on a 24-hour basis. She also sees pulmonary at . The patient has also received her COVID vaccine and influenza vaccine. PAST MEDICAL HISTORY: Significant for history of COPD, hypertension, pneumonia, cancer. PAST SURGICAL HISTORY: Lung biopsy. Details not available at present. SOCIAL HISTORY: Quit tobacco 30 years ago. Before that, smoked for 20 years, 1 pack per day. REVIEW OF SYSTEMS: Twelve-point review of system obtained. Pertinent positives discussed in my present illness, otherwise noncontributory. All systems that were negative were reviewed as well. MEDICATIONS: Reviewed including antibiotics, doxycycline and Rocephin. She is also on IV Solu-Medrol. FAMILY HISTORY: Noncontributory to lungs. ALLERGIES: NALBUPHINE. PHYSICAL EXAMINATION: VITAL SIGNS: Reviewed. She is afebrile, blood pressure stable, pulse ox 97% on 2 liters. NECK: Supple. LUNGS: With diminished breath sounds. CARDIOVASCULAR: With a regular rate. ABDOMEN: Soft, obese. EXTREMITIES: With no pitting edema. LABORATORY DATA: Reviewed. Sodium 141, potassium 4.1, BUN 18 and creatinine 1.3. White cell count 9.2, hemoglobin 12.4 and platelets are 197. IMPRESSION: 1. Dyspnea for the last several days along with cough, productive of purulent sputum. Findings are suggestive of pneumonia. 2. Underlying chronic obstructive pulmonary disease. Clinically, less likely congestive heart failure. 3. Abnormal chest x-ray with persistent basilar interstitial infiltrates. She has a history of COVID in April of last year. We will obtain CT chest for better assessment of consolidation and to rule out any ground-glass opacities, which could be a sequelae of prior COVID infection. 4. Mild renal insufficiency. RECOMMENDATIONS: 1. Continue present oxygen. This is her baseline flow at 2-3 liters. 2. Continue with Rocephin and doxycycline. 3. Obtain noncontrast CT chest. 4. Continue DuoNebs. 5. Taper steroids. Currently on 125 mg q.8 hours. 6. Discussed with RN. We will follow along with you. ART/MIESHA/BENJAMIN DR: Chela TID: [id number]
[2022-01-07 11:00] VITALS: BP 133/64
--- NOTE | 2022-01-07 12:16 | RAD ---
CT THORAX WO dated 01/07/2022 11:11 AM Indication:Reason: pneumonia vs fibrosis / Spl. Instructions: / History: Comparison: Chest radiograph of the previous day. Technique: Helical noncontrast images were performed. Sagittal and coronal reconstructions were obtai tejinder. One or more of the following individualized dose reduction techniques were utilized for this examinat ion: 1. Automated exposure control 2. Adjustment of the mA and/or kV according to patient size 3. Use of iterative reconstruction technique Findings: There is some prominent epicardial fat at the left base partly accounting for haziness in this region on the radiograph. There is no acute consolidation in the lungs. A few increased markings are seen a t the left lung base and may indicate mild scarring or atelectasis. Some tiny areas of nodularity ant eriorly in the right lower lobe may relate to previous granulomatous infection. A small nodule is see n in the right upper lobe and measures about 3 mm. This has questionable early internal calcification , and may also be granulomatous. There is some density near the right apex that may relate to prior s urgery. There is suggestion of early emphysema. No other significant pulmonary parenchymal abnormalit y is seen. The central airways appear normal. No enlarged lymph nodes are seen. The central pulmonary arteries are relatively prominent. The main pulmonary trunk measures about 3.4 cm across compared wi th diameter 3.2 cm of the adjacent aorta. 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 There is some coronary artery calcification most evident in the p roximal LAD distribution. Images through the upper abdomen show renal cysts. There may also be small gallstones in the gallblad fiona. IMPRESSION: No evidence of acute pulmonary infiltrate. There is little if any fibrosis. There are findings raisin g the possibility of prior granulomatous infection. Prominent central pulmonary arteries could indicate pulmonary hypertension. Electronically signed by: Glen Marx Jr., MD (01/07/2022 12:14 PM) [id number]
[2022-01-07] MEDS: cefTRIAXone IV Push 1 GM VIAL. IVP SCH (14:44)
[2022-01-07] MEDS: IV NORMAL SALINE 1000ML BAG 1,000 ML IV SCH (14:45)
[2022-01-07] MEDS: DOXYCYCLINE HYCLATE 100 MG in IV DEXTROSE 5% 100ML 100 ML IV SCH ×2 (14:46→20:32)
[2022-01-07 15:00] VITALS: BP 122/59
[2022-01-07] MEDS: IPRATRPIUM/ALBUTEROL 0.5/2.5MG 3 ML NEBU. NEB SCH ×2 (15:52→20:33)
[2022-01-07 19:00] VITALS: BP 121/60
[2022-01-07] MEDS: LACTOBACILLUS RHAMNOSUS GG 1 CAPSULE. PO SCH (20:30)
[2022-01-07 22:58] VITALS: BP 118/60
[2022-01-08] MEDS: ACETAMINOPHEN 325 MG TABLET. PO PRN ×3 (01:28→22:22)
[2022-01-08] MEDS: guaiFENesin DM 200MG/20MG 10 ML SYRUP PO PRN ×4 (02:01→20:41)
[2022-01-08 03:26] VITALS: BP 111/44
[2022-01-08] MEDS: methylPREDNISolone SOD SUCC PF 125 MG/2 ML VIAL. IV SCH ×3 (05:50→22:22)
[2022-01-08 06:11] VITALS: BP 109/56
[2022-01-08] MEDS: IPRATRPIUM/ALBUTEROL 0.5/2.5MG 3 ML NEBU. NEB SCH ×4 (07:36→20:27)
[2022-01-08] MEDS: METOPROLOL SUCC 24HR ER 25 MG TAB.ER.24H. PO SCH (07:46)
[2022-01-08] MEDS: hydroCHLOROthiazide 12.5 MG TABLET PO SCH (07:47)
[2022-01-08] MEDS: LEVOTHYROXINE 112 MCG TABLET PO SCH (07:47)
[2022-01-08] MEDS: ATORVASTATIN CALCIUM 10 MG TABLET. PO SCH (07:47)
[2022-01-08] MEDS: LACTOBACILLUS RHAMNOSUS GG 1 CAPSULE. PO SCH ×2 (07:47→20:38)
[2022-01-08] MEDS: DOXYCYCLINE HYCLATE 100 MG in IV DEXTROSE 5% 100ML 100 ML IV SCH (07:48)
--- NOTE | 2022-01-08 08:31 | PDOC ---
PULMONARY PROGRESS NOTES DATE: 01/08/22 TIME: 08:29 Subjective Patient still coughing. Denies any shortness of breath. Vitals Vital Signs Date Time Temp Pulse Resp B/P (MAP) Pulse Ox O2 Delivery O2 Flow Rate FiO2 01/08/22 07:47 75 109/56 01/08/22 07:36 97 Nasal Cannula 2.0 01/08/22 06:11 98.0 20 98.0 General: Alert, No acute distress Lungs: Clear Cardiovascular: S1 Abdomen: Soft Neuro Exam: Alert Extremities: No Edema Skin: Warm Labs Laboratory Tests Test 01/06/22 15:00 White Blood Count 9.2 x10^3/uL (4.0-11.0) Red Blood Count 4.55 x10^6/uL (3.50-5.40) Hemoglobin 12.4 g/dL (12.0-15.5) Hematocrit 38.2 % (36.0-47.0) Mean Corpuscular Volume 84 fL (79-100) Mean Corpuscular Hemoglobin 27 pg (25-35) Mean Corpuscular Hemoglobin Concent 33 g/dL (31-37) Red Cell Distribution Width 19.5 % (11.5-14.5) Platelet Count 197 x10^3/uL (140-400) Neutrophils (%) (Auto) 81 % (31-73) Lymphocytes (%) (Auto) 11 % (24-48) Monocytes (%) (Auto) 7 % (0-9) Eosinophils (%) (Auto) 1 % (0-3) Basophils (%) (Auto) 1 % (0-3) Neutrophils # (Auto) 7.4 x10^3/uL (1.8-7.7) Lymphocytes # (Auto) 1.0 x10^3/uL (1.0-4.8) Monocytes # (Auto) 0.7 x10^3/uL (0.0-1.1) Eosinophils # (Auto) 0.0 x10^3/uL (0.0-0.7) Basophils # (Auto) 0.1 x10^3/uL (0.0-0.2) Sodium Level 141 mmol/L (136-145) Potassium Level 4.1 mmol/L (3.5-5.1) Chloride Level 105 mmol/L (98-107) Carbon Dioxide Level 25 mmol/L (21-32) Anion Gap 11 (6-14) Blood Urea Nitrogen 18 mg/dL (7-20) Creatinine 1.3 mg/dL (0.6-1.0) Estimated GFR (Cockcroft-Gault) 48.3 BUN/Creatinine Ratio 14 (6-20) Glucose Level 111 mg/dL (70-99) Lactic Acid Level 1.6 mmol/L (0.4-2.0) Calcium Level 9.1 mg/dL (8.5-10.1) Total Bilirubin 1.0 mg/dL (0.2-1.0) Aspartate Amino Transf (AST/SGOT) 14 U/L (15-37) Alanine Aminotransferase (ALT/SGPT) 19 U/L (14-59) Alkaline Phosphatase 90 U/L (46-116) Troponin I High Sensitivity 55 ng/L (4-50) IB-Sba-A-Type Natriuretic Peptide 121 pg/mL (0-449) Total Protein 8.0 g/dL (6.4-8.2) Albumin 3.1 g/dL (3.4-5.0) Albumin/Globulin Ratio 0.6 (1.0-1.7) Influenza Type A Antigen Negative (NEGATIVE) Influenza Type B Antigen Negative (NEGATIVE) SARS-CoV-2 Antigen (Rapid) Negative (NEGATIVE) Medications Active Scripts Medications Dose Route/Sig Max Daily Dose Days Date Category Dose Instructions Hydrochlorothiazide 12.5 Mg Capsule 1 Cap PO DAILY 01/06/22 Reported Amoxicillin 500 Mg Capsule 1 Cap PO TID 01/06/22 Reported Atorvastatin Calcium 10 Mg Tablet 1 Tab PO DAILY 04/15/21 Reported Proair Hfa Inhaler (Albuterol Sulfate) 8.5 Gm Hfa.aer.ad 2 Puff IH PRN Q4-6HRS PRN 21 04/15/21 Reported Anoro Ellipta 62.5-25 Mcg Inh (Umeclidinium Brm/Vilanterol Tr) 1 Each Disk.w.dev 1 Puff INH DAILY 04/15/21 Reported Promethazine-Dm Syrup (Promethazine/Dextromethorphan) 473 Ml Syrup 5 Ml PO PRN Q6HRS PRN 04/15/21 Reported Metoprolol Succinate ( Xl ) (Metoprolol Succinate) 25 Mg Tab.er.24h 50 Mg PO DAILY 04/15/21 Reported Amlodipine Besylate 2.5 Mg Tablet 1 Tab PO DAILY 04/15/21 Reported Levothyroxine Sodium 112 Mcg Tablet 1 Tab PO DAILY 04/15/21 Reported [place] 5-325 Tablet (Acetaminophen/Hydrocodone Bitart) 1 Each Tablet 1-2 Each PO PRN Q6HRS PRN 08/14/19 Rx as needed for pain Comments CT chest reviewed by me. 01/07/2022. Per my impression there are faint interstitial infiltrates in the left lower lobe. Impression . 1. Dyspnea for the last several days along with cough, productive of purulent sputum. Findings are suggestive of pneumonia. 2. Underlying chronic obstructive pulmonary disease. Clinically, less likely congestive heart failure. 3. Abnormal chest x-ray with persistent basilar interstitial infiltrates. She has a history of COVID in April of last year. We will obtain CT chest for better assessment of consolidation and to rule out any ground-glass opacities, which could be a sequelae of prior COVID infection. 4. Mild renal insufficiency. Plan . RECOMMENDATIONS: 1. Continue present oxygen. This is her baseline flow at 2-3 liters. 2. Continue with Rocephin and doxycycline. 3. CT chest reviewed by me. Per my review there are faint interstitial infiltrates in the left lower lobe consistent with mild pneumonitis. This goes along with patient's symptoms as well. 4. Continue DuoNebs. Add Pulmicort nebulizer to improve her cough. 5. Continue steroids. 6. Discussed with RN. We will follow along with you. DAHIANA DECKER MD January 08, 2022 08:30
[2022-01-08 11:00] VITALS: BP 138/68
[2022-01-08] MEDS: BUDESONIDE 0.5 MG/2 ML NEBU. NEB SCH ×2 (11:39→20:27)
[2022-01-08] MEDS: IV NORMAL SALINE 1000ML BAG 1,000 ML IV SCH (12:53)
[2022-01-08 15:00] VITALS: BP 125/58
[2022-01-08] MEDS: cefTRIAXone IV Push 1 GM VIAL. IVP SCH (16:09)
[2022-01-08 19:00] VITALS: BP 121/60
--- NOTE | 2022-01-08 20:03 | PN ---
DATE: 01/08/2022 LOCATION: She is in room 438. SUBJECTIVE: This 76-year-old female remains hospitalized with exacerbation of COPD with shortness of breath and acute on chronic hypoxic respiratory failure. She is minimally improved in both cough and shortness of breath, but still quite tenuous according to her. OBJECTIVE: GENERAL: She is awake and alert. She does cough during the exam and gets short of breath with the same. CHEST: Clear to auscultation. HEART: Regular rate and rhythm. ABDOMEN: Soft, nontender without hepatosplenomegaly or mass. EXTREMITIES: Without cyanosis, clubbing or significant edema. NEUROLOGIC: She is intact. ASSESSMENT: Exacerbation of chronic obstructive pulmonary disease with bronchitis. PLAN: Continue present O2. Continue present antibiotics, steroid taper per Pulmonary. Expect she will improve with time. JOSE R DR: Angela TID: [id number]
[2022-01-08] MEDS: DOXYCYCLINE HYCLATE 100 MG TABLET PO SCH (20:38)
[2022-01-08 23:01] VITALS: BP 120/57
[2022-01-09] MEDS: IV NORMAL SALINE 1000ML BAG 1,000 ML IV SCH (02:53)
[2022-01-09] MEDS: guaiFENesin DM 200MG/20MG 10 ML SYRUP PO PRN ×3 (02:58→19:51)
[2022-01-09 03:23] VITALS: BP 140/66
[2022-01-09 07:00] VITALS: BP 128/65
[2022-01-09] MEDS: BUDESONIDE 0.5 MG/2 ML NEBU. NEB SCH ×2 (07:57→20:18)
[2022-01-09] MEDS: IPRATRPIUM/ALBUTEROL 0.5/2.5MG 3 ML NEBU. NEB SCH ×4 (07:57→20:18)
--- NOTE | 2022-01-09 08:17 | PDOC ---
Provider Note Date of Service: DATE: 01/09/22 TIME: 08:16 Provider Note feels ok, scant sputum, no temp, exam ok- labs ok- will dc iv fluid, reduce steroid, now, likely dc by 01/11 Justifications for Admission Other Justification ANNA AGUIRRE MD January 09, 2022 08:17
[2022-01-09] MEDS: LACTOBACILLUS RHAMNOSUS GG 1 CAPSULE. PO SCH ×2 (08:24→19:51)
[2022-01-09] MEDS: LEVOTHYROXINE 112 MCG TABLET PO SCH (08:24)
[2022-01-09] MEDS: hydroCHLOROthiazide 12.5 MG TABLET PO SCH (08:24)
[2022-01-09] MEDS: ACETAMINOPHEN 325 MG TABLET. PO PRN ×2 (08:24→20:07)
[2022-01-09] MEDS: DOXYCYCLINE HYCLATE 100 MG TABLET PO SCH ×2 (08:25→19:51)
[2022-01-09] MEDS: ATORVASTATIN CALCIUM 10 MG TABLET. PO SCH (08:25)
[2022-01-09] MEDS: METOPROLOL SUCC 24HR ER 25 MG TAB.ER.24H. PO SCH (08:26)
[2022-01-09] MEDS: methylPREDNISolone SOD SUCC PF 40 MG/ML VIAL. IV SCH ×2 (08:33→19:51)
--- NOTE | 2022-01-09 10:49 | PDOC ---
PULMONARY PROGRESS NOTES DATE: 01/09/22 TIME: 10:49 Subjective Patient still coughing. Light yellow sputum production. Denies any shortness of breath. Vitals Vital Signs Date Time Temp Pulse Resp B/P (MAP) Pulse Ox O2 Delivery O2 Flow Rate FiO2 01/09/22 08:26 69 128/65 01/09/22 07:58 100 Nasal Cannula 2.0 01/09/22 07:00 98.1 18 98.1 General: Alert, No acute distress Lungs: Clear Cardiovascular: S1 Abdomen: Soft Neuro Exam: Alert Extremities: No Edema Skin: Warm Medications Active Scripts Medications Dose Route/Sig Max Daily Dose Days Date Category Dose Instructions Hydrochlorothiazide 12.5 Mg Capsule 1 Cap PO DAILY 01/06/22 Reported Amoxicillin 500 Mg Capsule 1 Cap PO TID 01/06/22 Reported Atorvastatin Calcium 10 Mg Tablet 1 Tab PO DAILY 04/15/21 Reported Proair Hfa Inhaler (Albuterol Sulfate) 8.5 Gm Hfa.aer.ad 2 Puff IH PRN Q4-6HRS PRN 21 04/15/21 Reported Anoro Ellipta 62.5-25 Mcg Inh (Umeclidinium Brm/Vilanterol Tr) 1 Each Disk.w.dev 1 Puff INH DAILY 04/15/21 Reported Promethazine-Dm Syrup (Promethazine/Dextromethorphan) 473 Ml Syrup 5 Ml PO PRN Q6HRS PRN 04/15/21 Reported Metoprolol Succinate ( Xl ) (Metoprolol Succinate) 25 Mg Tab.er.24h 50 Mg PO DAILY 04/15/21 Reported Amlodipine Besylate 2.5 Mg Tablet 1 Tab PO DAILY 04/15/21 Reported Levothyroxine Sodium 112 Mcg Tablet 1 Tab PO DAILY 04/15/21 Reported [place] 5-325 Tablet (Acetaminophen/Hydrocodone Bitart) 1 Each Tablet 1-2 Each PO PRN Q6HRS PRN 08/14/19 Rx as needed for pain Comments CT chest reviewed by me. 01/07/2022. Per my impression there are faint interstitial infiltrates in the left lower lobe. Impression . 1. Dyspnea for the last several days along with cough, productive of purulent sputum. Findings are suggestive of pneumonia. 2. Underlying chronic obstructive pulmonary disease. Clinically, less likely congestive heart failure. 3. Abnormal chest x-ray with persistent basilar interstitial infiltrates. She has a history of COVID in April of last year. We will obtain CT chest for better assessment of consolidation and to rule out any ground-glass opacities, which could be a sequelae of prior COVID infection. 4. Mild renal insufficiency. Plan . RECOMMENDATIONS: 1. Continue present oxygen. This is her baseline flow at 2-3 liters. 2. Continue with Rocephin and doxycycline. 3. CT chest reviewed by me. Per my review there are faint interstitial infiltrates in the left lower lobe consistent with mild pneumonitis. This goes along with patient's symptoms as well. 4. Continue DuoNebs. Add Pulmicort nebulizer to improve her cough. 5. Continue steroids. 6. Discussed with RN. We will follow along with you. DAHIANA DECKER MD January 09, 2022 10:49
[2022-01-09 11:00] VITALS: BP 120/66
[2022-01-09 15:00] VITALS: BP 114/58
[2022-01-09] MEDS: cefTRIAXone IV Push 1 GM VIAL. IVP SCH (15:00)
[2022-01-09 19:00] VITALS: BP 126/53
[2022-01-09 23:00] VITALS: BP 123/56
[2022-01-10 03:14] VITALS: BP 154/68
[2022-01-10] MEDS: guaiFENesin DM 200MG/20MG 10 ML SYRUP PO PRN ×3 (03:39→19:34)
[2022-01-10 07:00] VITALS: BP 166/70
[2022-01-10] MEDS: BUDESONIDE 0.5 MG/2 ML NEBU. NEB SCH ×2 (07:45→19:42)
[2022-01-10] MEDS: IPRATRPIUM/ALBUTEROL 0.5/2.5MG 3 ML NEBU. NEB SCH ×4 (07:45→19:44)
--- NOTE | 2022-01-10 07:50 | PDOC ---
Provider Note Date of Service: DATE: 01/10/22 TIME: 07:49 Provider Note vss, no new sxs, no temp- will go to po meds, home am if ok Justifications for Admission Other Justification ANNA AGUIRRE MD January 10, 2022 07:50
[2022-01-10] MEDS: predniSONE 20 MG TABLET PO SCH (09:00)
[2022-01-10] MEDS: METOPROLOL SUCC 24HR ER 50 MG TAB.ER.24H. PO SCH (09:33)
[2022-01-10] MEDS: DOXYCYCLINE HYCLATE 100 MG TABLET PO SCH ×2 (09:33→21:41)
[2022-01-10] MEDS: hydroCHLOROthiazide 12.5 MG TABLET PO SCH (09:34)
[2022-01-10] MEDS: LEVOTHYROXINE 112 MCG TABLET PO SCH (09:34)
[2022-01-10] MEDS: LACTOBACILLUS RHAMNOSUS GG 1 CAPSULE. PO SCH ×2 (09:35→21:41)
[2022-01-10] MEDS: ATORVASTATIN CALCIUM 10 MG TABLET. PO SCH (09:35)
[2022-01-10 11:00] VITALS: BP 117/48
--- NOTE | 2022-01-10 11:31 | PDOC ---
PULMONARY PROGRESS NOTES DATE: 01/10/22 TIME: 11:30 Subjective Patient has been ambulating in the hallway. Denies any shortness of breath. She states cough is less. Vitals Vital Signs Date Time Temp Pulse Resp B/P (MAP) Pulse Ox O2 Delivery O2 Flow Rate FiO2 01/10/22 11:00 97.9 71 14 117/48 (71) 96 Nasal Cannula 2.0 97.9 General: Alert, No acute distress Lungs: Clear Cardiovascular: S1 Abdomen: Soft Neuro Exam: Alert Extremities: No Edema Skin: Warm Medications Active Scripts Medications Dose Route/Sig Max Daily Dose Days Date Category Dose Instructions Hydrochlorothiazide 12.5 Mg Capsule 1 Cap PO DAILY 01/06/22 Reported Amoxicillin 500 Mg Capsule 1 Cap PO TID 01/06/22 Reported Atorvastatin Calcium 10 Mg Tablet 1 Tab PO DAILY 04/15/21 Reported Proair Hfa Inhaler (Albuterol Sulfate) 8.5 Gm Hfa.aer.ad 2 Puff IH PRN Q4-6HRS PRN 21 04/15/21 Reported Anoro Ellipta 62.5-25 Mcg Inh (Umeclidinium Brm/Vilanterol Tr) 1 Each Disk.w.dev 1 Puff INH DAILY 04/15/21 Reported Promethazine-Dm Syrup (Promethazine/Dextromethorphan) 473 Ml Syrup 5 Ml PO PRN Q6HRS PRN 04/15/21 Reported Metoprolol Succinate ( Xl ) (Metoprolol Succinate) 25 Mg Tab.er.24h 50 Mg PO DAILY 04/15/21 Reported Amlodipine Besylate 2.5 Mg Tablet 1 Tab PO DAILY 04/15/21 Reported Levothyroxine Sodium 112 Mcg Tablet 1 Tab PO DAILY 04/15/21 Reported [place] 5-325 Tablet (Acetaminophen/Hydrocodone Bitart) 1 Each Tablet 1-2 Each PO PRN Q6HRS PRN 08/14/19 Rx as needed for pain Comments CT chest reviewed by me. 01/07/2022. Per my impression there are faint interstitial infiltrates in the left lower lobe. Impression . 1. Dyspnea for the last several days along with cough, productive of purulent sputum. Findings are suggestive of pneumonia. 2. Underlying chronic obstructive pulmonary disease. Clinically, less likely congestive heart failure. 3. Abnormal chest x-ray with persistent basilar interstitial infiltrates. She has a history of COVID in April of last year. 4. Mild renal insufficiency. Plan . RECOMMENDATIONS: 1. Continue present oxygen. This is her baseline flow at 2-3 liters. 2. Continue with Rocephin and doxycycline. 3. CT chest reviewed by me. Per my review there are faint interstitial infiltrates in the left lower lobe consistent with mild pneumonitis. This goes along with patient's symptoms as well. 4. Continue DuoNebs. Pulmicort nebulizer to improve her cough. 5. Continue steroids. 6. Discussed with RN. We will follow along with you. 7. Clinically improving. Likely discharge in next 24 hours. DAHIANA DECKER MD January 10, 2022 11:31
[2022-01-10] MEDS: CEFDINIR 300 MG CAPSULE PO SCH ×2 (13:37→21:41)
[2022-01-10 15:00] VITALS: BP 125/70
[2022-01-10 19:00] VITALS: BP 141/66
[2022-01-10 23:10] VITALS: BP 135/66
[2022-01-11 02:59] VITALS: BP 138/52
[2022-01-11 07:00] VITALS: BP 156/75
[2022-01-11] MEDS: IPRATRPIUM/ALBUTEROL 0.5/2.5MG 3 ML NEBU. NEB SCH ×2 (08:02→12:01)
[2022-01-11] MEDS: BUDESONIDE 0.5 MG/2 ML NEBU. NEB SCH (08:02)
[2022-01-11] MEDS: hydroCHLOROthiazide 12.5 MG TABLET PO SCH (09:57)
[2022-01-11] MEDS: DOXYCYCLINE HYCLATE 100 MG TABLET PO SCH (09:57)
[2022-01-11] MEDS: ATORVASTATIN CALCIUM 10 MG TABLET. PO SCH (09:57)
[2022-01-11] MEDS: METOPROLOL SUCC 24HR ER 50 MG TAB.ER.24H. PO SCH (09:57)
[2022-01-11] MEDS: predniSONE 20 MG TABLET PO SCH (09:57)
[2022-01-11] MEDS: LEVOTHYROXINE 112 MCG TABLET PO SCH (09:58)
[2022-01-11 11:00] VITALS: BP 138/70
--- NOTE | 2022-01-11 11:02 | PDOC ---
PULMONARY PROGRESS NOTES DATE: 01/11/22 TIME: 11:02 Subjective Patient has been ambulating in the hallway. Denies any shortness of breath. She states cough is less. Vitals Vital Signs Date Time Temp Pulse Resp B/P (MAP) Pulse Ox O2 Delivery O2 Flow Rate FiO2 01/11/22 09:58 61 156/75 01/11/22 08:03 95 Nasal Cannula 2.0 01/11/22 07:00 97.9 18 97.9 General: Alert, No acute distress Lungs: Clear Cardiovascular: S1 Abdomen: Soft Neuro Exam: Alert Extremities: No Edema Skin: Warm Medications Active Scripts Medications Dose Route/Sig Max Daily Dose Days Date Category Dose Instructions Hydrochlorothiazide 12.5 Mg Capsule 1 Cap PO DAILY 01/06/22 Reported Amoxicillin 500 Mg Capsule 1 Cap PO TID 01/06/22 Reported Atorvastatin Calcium 10 Mg Tablet 1 Tab PO DAILY 04/15/21 Reported Proair Hfa Inhaler (Albuterol Sulfate) 8.5 Gm Hfa.aer.ad 2 Puff IH PRN Q4-6HRS PRN 04/15/21 Reported Anoro Ellipta 62.5-25 Mcg Inh (Umeclidinium Brm/Vilanterol Tr) 1 Each Disk.w.dev 1 Puff INH DAILY 04/15/21 Reported Promethazine-Dm Syrup (Promethazine/Dextromethorphan) 473 Ml Syrup 5 Ml PO PRN Q6HRS PRN 04/15/21 Reported Metoprolol Succinate ( Xl ) (Metoprolol Succinate) 25 Mg Tab.er.24h 50 Mg PO DAILY 04/15/21 Reported Amlodipine Besylate 2.5 Mg Tablet 1 Tab PO DAILY 04/15/21 Reported Levothyroxine Sodium 112 Mcg Tablet 1 Tab PO DAILY 04/15/21 Reported [place] 5-325 Tablet (Acetaminophen/Hydrocodone Bitart) 1 Each Tablet 1-2 Each PO PRN Q6HRS PRN 08/14/19 Rx as needed for pain Comments CT chest reviewed by me. 01/07/2022. Per my impression there are faint interstitial infiltrates in the left lower lobe. Impression . 1. Dyspnea for the last several days along with cough, productive of purulent sputum. Findings are suggestive of pneumonia. 2. Underlying chronic obstructive pulmonary disease. Clinically, less likely congestive heart failure. 3. Abnormal chest x-ray with persistent basilar interstitial infiltrates. She has a history of COVID in April of last year. 4. Mild renal insufficiency. Plan . RECOMMENDATIONS: 1. Continue present oxygen. This is her baseline flow at 2-3 liters. 2. Continue with Rocephin and doxycycline. 3. CT chest reviewed by me. Per my review there are faint interstitial infiltrates in the left lower lobe consistent with mild pneumonitis. This goes along with patient's symptoms as well. 4. Continue DuoNebs. Pulmicort nebulizer to improve her cough. 5. Continue steroids. 6. Discussed with RN. We will follow along with you. 7. Clinically improving. Likely discharge today d/w DAHIANA BEASLEY MD January 11, 2022 11:02
[2022-01-11] MEDS ORDERED: guaiFENesin DM 200MG/20MG 10 ML SYRUP PO PRN (11:15)
--- NOTE | 2022-01-12 09:14 | DS ---
DATE OF DISCHARGE: 01/11/2022 HOSPITAL SUMMARY: The patient was admitted with COPD exacerbation. She is on IV antibiotics and steroids and then doxycycline and prednisone at rest. Chest x-ray and CT scan were unremarkable without sign of obvious pneumonia. Laboratory studies were all within normal limits as . She is followed by exacerbation of COPD non stop. OPERATIONS, PROCEDURES, AND COMPLICATIONS: None. CONSULTATION: Dr. Miller. DISPOSITION: Five days of oral doxycycline 100 mg twice a day, prednisone taper over the next 5 days. Also, use Anoro inhaler with ProAir for breakthrough and follow up in [address] Wilson. She is already on home oxygen. Prognosis is good. COVID vaccine history is up-to-date. YEN/SHAYLEE/MODESTA DR: YEN/sharan TID: [id number]
== END 2022-01-11 13:45 | disposition still patient (30) | DRG 193 ==
LOC: ER 14:15 → 4 NORTH 18:10
PROVIDERS: ADMIT Family Medicine; ATTEND Family Medicine
DX: J18.9 Pneumonia, unspecified organism (principal); N17.0 Acute kidney failure with tubular necrosis; J44.1 Chronic obstructive pulmonary disease with (acute) exacerbation; J44.0 Chronic obstructive pulmonary disease with (acute) lower respiratory infection; Z86.16 Personal history of COVID-19
CPT/HCPCS: 36415; 71045; 71250; 80053; 83605; 83880; 84484; 85025; 87040; 87428; 93005; 94640; 94760; 96365; 96375; J0696; J2920; J2930; J3490; J7030; J7060; J7512; 99285-25; G0378; J7626